=== PATIENT | male | born 1940 | race Two or more races ===

== ENCOUNTER 2023-11-03 00:54 | Inpatient (IN) | payer BC ==
[2023-11-03] VITALS (7 sets, daily range): BP systolic 116–138; BP diastolic 37–45; PULSE 57–70; RESP 16–20; TEMP 98.4–98.8; O2SAT 94–98
[~2023-11-03] VITALS: Ht 180.3 cm; Wt 99.8 kg
[2023-11-03] MEDS ORDERED: SODIUM CHLORIDE 0.9% 1,000 ML IV SCH ×2 (04:15→16:00)
[2023-11-03] MEDS ORDERED: NITROGLYCERIN 0.4 MG SL TAB SL PRN (04:15)
[2023-11-03] MEDS ORDERED: DOCUSATE SOD 100 MG CAP PO PRN (04:15)
[2023-11-03] MEDS ORDERED: ONDANSETRON HCL 4 MG/2 ML VIAL IV PRN (04:15)
[2023-11-03] MEDS ORDERED: MORPHINE SULFATE INJ 2 MG/ml SYRG IV PRN (04:15)
[2023-11-03] MEDS ORDERED: HYDROcodone-ACET 5/325MG TAB PO PRN (04:15)
[2023-11-03] MEDS ORDERED: ACETAMINOPHEN 325 MG TAB PO PRN (04:15)
[2023-11-03] MEDS ORDERED: SODI650T PO (04:22)
[2023-11-03] MEDS ORDERED: SIMV20TA20 PO (04:22)
[2023-11-03] MEDS ORDERED: ALLO300T2 PO (04:22)
[2023-11-03] MEDS ORDERED: AMIO200T13 PO (04:22)
[2023-11-03] MEDS ORDERED: FURO40TA4 PO (04:22)
[2023-11-03] MEDS ORDERED: BENA-27 PO (04:22)
[2023-11-03 05:58] LABS: Basophils # (auto) 0.1 10 ^3/uL (0-0.2); Basophils % (auto) 0.4 % (0.0-2.0); Eosinophils # (auto) 0 10 ^3/uL (0-0.8); Hematocrit 36.9 % (41.0-53.0); Hemoglobin 11.8 g/dL (13.5-17.5); Lymphocytes # (auto) 1.2 10 ^3/uL (0.4-5.4); Mean Corpuscular Hemoglobin 29.7 pg (28.0-32.0); Mean Corpuscular Hgb Conc. 32.1 g/dL (32.0-36.0); Mean Corpuscular Volume 92.5 fL (80.0-100.0); Monocytes # (auto) 1.6 10 ^3/uL (0-1.3); Monocytes % (auto) 8.1 % (0.0-12.0); Neutrophils # (auto) 16.9 10 ^3/uL (1.6-8.6); Neutrophils % (auto) 85.5 % (37.0-80.0); Red Blood Cells 3.99 10^6/uL (4.5-5.90); White Blood Cell 19.8 10^3/uL (4.4-10.8)
[2023-11-03 06:10] LABS: Calcium 8.4 mg/dL (8.7-10.4); Chloride 105 mmol/L (98-107); Potassium 4.1 mmol/L (3.5-5.1); Sodium 137 mmol/L (136-145)
[2023-11-03 06:11] LABS: Anion Gap 12 (5-15); Carbon Dioxide 20 mmol/L (20-30)
[2023-11-03 06:16] LABS: BUN/Creatinine Ratio 19.9 (10.0-20.0); Blood Urea Nitrogen 47 mg/dL (9-23); Glucose 122 mg/dL (74-106)
[2023-11-03] MEDS: PIPERACILLIN-TAZOB 3.375GM 100 ML IV SCH ×2 (08:56→21:10)
[2023-11-03] MEDS ORDERED: ATORVASTATIN 20 MG TAB PO SCH (22:00)
[2023-11-04] VITALS (8 sets, daily range): BP systolic 113–178; BP diastolic 41–71; PULSE 63–69; RESP 16–20; TEMP 98.1–98.8; O2SAT 95–98
[2023-11-04] MEDS: hydrALAZINE HCL 20 MG/ML VL IV PRN ×2 (04:56→16:41)
[2023-11-04 05:10] LABS: Basophils # (auto) 0 10 ^3/uL (0-0.2); Basophils % (auto) 0.3 % (0.0-2.0); Eosinophils # (auto) 0.1 10 ^3/uL (0-0.8); Eosinophils % (auto) 0.5 % (0.0-7.0); Hematocrit 35.1 % (41.0-53.0); Hemoglobin 11.5 g/dL (13.5-17.5); Lymphocytes # (auto) 1.4 10 ^3/uL (0.4-5.4); Lymphocytes % (auto) 9.1 % (10.0-50.0); Mean Corpuscular Hgb Conc. 32.6 g/dL (32.0-36.0); Monocytes # (auto) 1.4 10 ^3/uL (0-1.3); Monocytes % (auto) 8.8 % (0.0-12.0); Neutrophils # (auto) 12.9 10 ^3/uL (1.6-8.6); Neutrophils % (auto) 81.3 % (37.0-80.0); Red Blood Cells 3.82 10^6/uL (4.5-5.90); Red Cell Distribution Width 16.8 % (11.8-14.3); White Blood Cell 15.8 10^3/uL (4.4-10.8)
[2023-11-04 05:15] LABS: Anion Gap 11 (5-15); Carbon Dioxide 20 mmol/L (20-30); Chloride 105 mmol/L (98-107); Potassium 4.2 mmol/L (3.5-5.1); Sodium 136 mmol/L (136-145)
[2023-11-04 05:16] LABS: Calcium 8.6 mg/dL (8.7-10.4)
[2023-11-04 05:21] LABS: BUN/Creatinine Ratio 23.2 (10.0-20.0); Blood Urea Nitrogen 46 mg/dL (9-23); Glucose 110 mg/dL (74-106)
[2023-11-04] MEDS ORDERED: ASPirin-EC 81 mg tab PO SCH (10:00)
[2023-11-04] MEDS ORDERED: ASPI-543 PO (10:08)
[2023-11-04] MEDS: PIPERACILLIN-TAZOB 3.375GM 100 ML IV SCH ×2 (10:17→21:08)
[2023-11-04] MEDS: ENOXAPARIN SOD 30 MG/0.3 ML SYRINGE SC SCH (10:17)
[2023-11-04] MEDS ORDERED: LACTULOSE 20Gm/30ML SOLN PO PRN (12:45)
[2023-11-04] MEDS: AMIODARONE HCL 200 MG TAB PO SCH (13:03)
[2023-11-04 20:57] LABS: Urine Bacteria NONE SEEN /hpf (None Seen); Urine Blood 2+ /uL (Negative); Urine Clarity Clear (Clear); Urine Color Yellow (Yellow); Urine Protein, UAD 1+ (Negative); Urine Specific Gravity 1.013 (1.001-1.035); Urine WBC 20 /hpf (0 - 3)
[2023-11-04 21:01] LABS: Creatinine, Urine 72.02 mg/dL (30.0-125.0)
[2023-11-04] MEDS: ATORVASTATIN 20 MG TAB PO SCH (21:09)
[2023-11-05] VITALS (7 sets, daily range): BP systolic 130–145; BP diastolic 42–73; PULSE 60–68; RESP 17–20; TEMP 97.5–98.6; O2SAT 95–97
[2023-11-05 06:30] LABS: Basophils # (auto) 0.1 10 ^3/uL (0-0.2); Basophils % (auto) 0.6 % (0.0-2.0); Eosinophils # (auto) 0.1 10 ^3/uL (0-0.8); Eosinophils % (auto) 1.5 % (0.0-7.0); Hematocrit 34.9 % (41.0-53.0); Hemoglobin 11.5 g/dL (13.5-17.5); Lymphocytes # (auto) 1.3 10 ^3/uL (0.4-5.4); Lymphocytes % (auto) 13.2 % (10.0-50.0); Mean Corpuscular Hemoglobin 30.3 pg (28.0-32.0); Mean Corpuscular Hgb Conc. 32.9 g/dL (32.0-36.0); Monocytes # (auto) 1.2 10 ^3/uL (0-1.3); Monocytes % (auto) 12.5 % (0.0-12.0); Neutrophils # (auto) 6.8 10 ^3/uL (1.6-8.6); Neutrophils % (auto) 72.2 % (37.0-80.0); Nucleated Red Blood Cells % 0.1 %; Red Blood Cells 3.79 10^6/uL (4.5-5.90); Red Cell Distribution Width 16.6 % (11.8-14.3); White Blood Cell 9.5 10^3/uL (4.4-10.8)
[2023-11-05 06:43] LABS: Calcium 8.7 mg/dL (8.7-10.4); Chloride 107 mmol/L (98-107); Potassium 4.1 mmol/L (3.5-5.1); Sodium 138 mmol/L (136-145)
[2023-11-05 06:44] LABS: Anion Gap 12 (5-15); Carbon Dioxide 19 mmol/L (20-30)
[2023-11-05 06:49] LABS: BUN/Creatinine Ratio 19.4 (10.0-20.0); Blood Urea Nitrogen 38 mg/dL (9-23); Glucose 102 mg/dL (74-106)
[2023-11-05] MEDS: PIPERACILLIN-TAZOB 3.375GM 100 ML IV SCH ×2 (09:47→22:27)
[2023-11-05] MEDS: AMIODARONE HCL 200 MG TAB PO SCH (09:48)
[2023-11-05] MEDS: ALLOPURINOL 300 MG TAB PO SCH (09:48)
[2023-11-05] MEDS: ENOXAPARIN SOD 30 MG/0.3 ML SYRINGE SC SCH (09:48)
[2023-11-05] MEDS: ASPirin-EC 81 mg tab PO SCH (09:48)
[2023-11-05] MEDS: ATORVASTATIN 20 MG TAB PO SCH (22:26)
[2023-11-06 05:00] VITALS: BP 131/39; PULSE 60; RESP 18; TEMP 98.6; O2SAT 96
[2023-11-06 07:58] VITALS: PULSE 61
[2023-11-06 08:00] VITALS: PULSE 60
[2023-11-06 08:00] LABS: Basophils # (auto) 0.1 10 ^3/uL (0-0.2); Basophils % (auto) 1.1 % (0.0-2.0); Eosinophils # (auto) 0.2 10 ^3/uL (0-0.8); Eosinophils % (auto) 2.1 % (0.0-7.0); Hematocrit 33.3 % (41.0-53.0); Hemoglobin 11.1 g/dL (13.5-17.5); Lymphocytes # (auto) 1.2 10 ^3/uL (0.4-5.4); Lymphocytes % (auto) 16.3 % (10.0-50.0); Mean Corpuscular Hemoglobin 30.3 pg (28.0-32.0); Mean Corpuscular Hgb Conc. 33.2 g/dL (32.0-36.0); Mean Corpuscular Volume 91.3 fL (80.0-100.0); Monocytes % (auto) 13.8 % (0.0-12.0); Neutrophils # (auto) 4.7 10 ^3/uL (1.6-8.6); Neutrophils % (auto) 66.7 % (37.0-80.0); Red Blood Cells 3.64 10^6/uL (4.5-5.90); Red Cell Distribution Width 16.5 % (11.8-14.3)
[2023-11-06 08:16] LABS: Chloride 109 mmol/L (98-107); Potassium 4.3 mmol/L (3.5-5.1); Sodium 140 mmol/L (136-145)
[2023-11-06 08:17] LABS: Anion Gap 10 (5-15); Carbon Dioxide 21 mmol/L (20-30)
[2023-11-06 08:22] LABS: BUN/Creatinine Ratio 19.1 (10.0-20.0); Blood Urea Nitrogen 41 mg/dL (9-23); Glucose 97 mg/dL (74-106)
[2023-11-06 09:00] VITALS: BP 164/44; PULSE 60; RESP 18; TEMP 97.2; O2SAT 94
[2023-11-06] MEDS: hydrALAZINE HCL 20 MG/ML VL IV PRN (09:06)
[2023-11-06] MEDS: ALLOPURINOL 300 MG TAB PO SCH (09:09)
[2023-11-06] MEDS: ASPirin-EC 81 mg tab PO SCH (09:09)
[2023-11-06] MEDS: ENOXAPARIN SOD 30 MG/0.3 ML SYRINGE SC SCH (09:10)
[2023-11-06] MEDS: AMIODARONE HCL 200 MG TAB PO SCH (09:10)
[2023-11-06] MEDS: PIPERACILLIN-TAZOB 3.375GM 100 ML IV SCH (09:32)
[2023-11-06 13:00] VITALS: BP 140/46; PULSE 60; RESP 18; TEMP 97.6; O2SAT 96
[2023-11-06] MEDS ORDERED: AMIO200T13 PO (14:53)
[2023-11-06] MEDS ORDERED: AMOX500T86 PO (14:53)
[2023-11-06 17:00] VITALS: BP 151/48; PULSE 61; RESP 18; TEMP 97.9; O2SAT 98
== END 2023-11-06 18:45 | disposition home health service (06) | DRG 683 ==
LOC: TELE-WESTW 02:25
PROVIDERS: ADMIT Hospitalist; ATTEND Hospitalist
DX: N17.9 Acute kidney failure, unspecified (principal); E87.20 Acidosis, unspecified; L03.115 Cellulitis of right lower limb; N39.0 Urinary tract infection, site not specified; E66.9 Obesity, unspecified; H91.90 Unspecified hearing loss, unspecified ear; S09.90XA Unspecified injury of head, initial encounter; I13.10 Hypertensive heart and chronic kidney disease without heart failure, with stage 1 through stage 4 chronic kidney disease, or unspecified chronic kidney disease; M10.9 Gout, unspecified; N18.32 Chronic kidney disease, stage 3b; I48.91 Unspecified atrial fibrillation; Z68.30 Body mass index [BMI] 30.0-30.9, adult; Z80.9 Family history of malignant neoplasm, unspecified; Z95.2 Presence of prosthetic heart valve; Z95.0 Presence of cardiac pacemaker
CPT/HCPCS: 36415; 73562; 73610; 76775; 80048; 81001; 82570; 84156; 84300; 84484; 85025; 87040; 87081; 87086; 93306; 97110; 97116; 97163; 97530; G0378; J2543

== ENCOUNTER 2023-11-15 11:50 | Emergency (ER) | payer BC ==
[~2023-11-15] VITALS: Ht 180.3 cm; Wt 100.0 kg
[~2023-11-15 11:50] MED LIST: ALLO300T2 PO; AMIO200T13 PO; AMOX500T86 PO; ASPI-543 PO; BENA-27 PO; SIMV20TA20 PO; SODI650T PO
[2023-11-15 13:30] VITALS: BP 178/84; PULSE 107; RESP 16; O2SAT 98
[2023-11-15 13:40] VITALS: TEMP 98.4
[2023-11-15] MEDS ORDERED: ACET-1080 PO (13:40)
[2023-11-15] MEDS ORDERED: ACETAMINOPHEN 500 MG TAB PO ONE (13:45)
== END 2023-11-15 13:43 | disposition home or self-care (01) ==
LOC: EDBD 11:50 → EDUNIT# 11:50 → ER 11:50
DX: S82.832A Other fracture of upper and lower end of left fibula, initial encounter for closed fracture (principal); I10 Essential (primary) hypertension; W01.0XXA Fall on same level from slipping, tripping and stumbling without subsequent striking against object, initial encounter; Y93.01 Activity, walking, marching and hiking; Y92.89 Other specified places as the place of occurrence of the external cause; Y99.8 Other external cause status
CPT/HCPCS: 29515; 73610

== ENCOUNTER 2023-12-04 10:45 | Inpatient (IN) | payer BC ==
[~2023-12-04] VITALS: Ht 180.3 cm; Wt 100.0 kg
[~2023-12-04 10:45] MED LIST changes: +ACET-1080 PO
[2023-12-04] MEDS: FLEET ENEMA(ADULT) 135 ML PR ONE (11:30)
[2023-12-04 11:38] LABS: Basophils # (auto) 0.1 10 ^3/uL (0-0.2); Basophils % (auto) 0.6 % (0.0-2.0); Eosinophils # (auto) 0.1 10 ^3/uL (0-0.8); Eosinophils % (auto) 0.8 % (0.0-7.0); Hematocrit 41.4 % (41.0-53.0); Hemoglobin 13.6 g/dL (13.5-17.5); Lymphocytes # (auto) 1.7 10 ^3/uL (0.4-5.4); Lymphocytes % (auto) 17.8 % (10.0-50.0); Mean Corpuscular Hemoglobin 30.4 pg (28.0-32.0); Mean Corpuscular Hgb Conc. 32.9 g/dL (32.0-36.0); Mean Corpuscular Volume 92.4 fL (80.0-100.0); Monocytes % (auto) 10.7 % (0.0-12.0); Neutrophils # (auto) 6.8 10 ^3/uL (1.6-8.6); Neutrophils % (auto) 70.1 % (37.0-80.0); Red Blood Cells 4.48 10^6/uL (4.5-5.90); Red Cell Distribution Width 17.6 % (11.8-14.3); White Blood Cell 9.7 10^3/uL (4.4-10.8)
[2023-12-04 11:48] LABS: Alanine Aminotransferase 13 U/L (7-40); Albumin 4.5 g/dL (3.2-4.8); Alkaline Phosphatase 164 U/L (46-116); Anion Gap 9 (5-15); Aspartate Aminotransferase 16 U/L (13-40); Blood Urea Nitrogen 42 mg/dL (9-23); Calcium 9.5 mg/dL (8.7-10.4); Carbon Dioxide 23 mmol/L (20-30); Chloride 104 mmol/L (98-107); Glucose 128 mg/dL (74-106); Lipase 40 U/L (12-53); Potassium 4.3 mmol/L (3.5-5.1); Sodium 136 mmol/L (136-145)
[2023-12-04 11:49] LABS: Bilirubin, Total 0.6 mg/dL (0.2-1.0); Total Protein 6.7 g/dL (5.7-8.2)
[2023-12-04 12:12] LABS: Urine Bacteria NONE SEEN /hpf (None Seen); Urine Blood TRACE /uL (Negative); Urine Clarity Clear (Clear); Urine Color Colorless (Yellow); Urine Hyaline Cast FEW /lpf (0 - 2); Urine Protein, UAD TRACE (Negative); Urine Specific Gravity 1.009 (1.001-1.035); Urine Urobilinogen Normal (Negative); Urine WBC 1 /hpf (0 - 3); Urine pH 5.5 (5.0-8.0)
[2023-12-04] MEDS ORDERED: MORPHINE SULFATE INJ 2 MG/ml SYRG IV PRN ×2 (12:45)
[2023-12-04] MEDS ORDERED: PROMETHAZINE HCL 25 MG/ML 1ML IV PRN (12:45)
[2023-12-04] MEDS ORDERED: NITROGLYCERIN 0.4 MG SL TAB SL PRN (12:45)
[2023-12-04] MEDS ORDERED: MORPHINE SULFATE 4 MG/ML SYR/VIAL IV PRN (12:45)
[2023-12-04] MEDS ORDERED: hydrALAZINE HCL 20 MG/ML VL IV PRN (13:00)
[2023-12-04] MEDS: FLEET MINERAL OIL ENEMA 133 ML PR ONE (14:12)
[2023-12-04] MEDS: SOD CHL 0.45% WITH 20MEQ KCL 1,000 ML IV SCH (14:39)
[2023-12-04] MEDS: SODIUM CHLORIDE 0.9% 1,000 ML IV SCH (15:51)
[2023-12-04 17:46] VITALS: PULSE 65; RESP 18; O2SAT 97
[2023-12-04] MEDS: LACTULOSE 20Gm/30ML SOLN PO SCH (18:25)
[2023-12-04] MEDS ORDERED: FURO40TA4 PO (18:58)
[2023-12-04] MEDS ORDERED: LUTE6TAB PO (18:58)
[2023-12-04 20:00] VITALS: BP 168/46; PULSE 62; RESP 17; TEMP 97.5; O2SAT 96
[2023-12-04 22:00] VITALS: BP 168/43; PULSE 62; RESP 20; TEMP 97.6; O2SAT 96
[2023-12-04] MEDS: ATORVASTATIN 20 MG TAB PO SCH (22:36)
[2023-12-04] MEDS: cloNIDine HCL 0.1 MG TAB PO SCH (22:36)
[2023-12-04] MEDS: SENNA 8.6 MG TAB PO SCH (22:36)
[2023-12-05 05:00] VITALS: BP 95/35; PULSE 60; RESP 20; TEMP 98.8; O2SAT 95
[2023-12-05 06:33] LABS: Chloride 109 mmol/L (98-107); Potassium 4.3 mmol/L (3.5-5.1); Sodium 139 mmol/L (136-145)
[2023-12-05 06:34] LABS: Anion Gap 7 (5-15); Calcium 9.1 mg/dL (8.5-10.1); Carbon Dioxide 23 mmol/L (20-30)
[2023-12-05 06:39] LABS: BUN/Creatinine Ratio 17.9 (10.0-20.0); Glucose 105 mg/dL (74-106)
[2023-12-05 06:40] LABS: Basophils # (auto) 0 10 ^3/uL (0-0.2); Basophils % (auto) 0.7 % (0.0-2.0); Eosinophils # (auto) 0.2 10 ^3/uL (0-0.8); Eosinophils % (auto) 2.5 % (0.0-7.0); Hematocrit 36.6 % (41.0-53.0); Lymphocytes # (auto) 1.6 10 ^3/uL (0.4-5.4); Lymphocytes % (auto) 22.8 % (10.0-50.0); Mean Corpuscular Hemoglobin 29.8 pg (28.0-32.0); Mean Corpuscular Hgb Conc. 32.7 g/dL (32.0-36.0); Mean Corpuscular Volume 91.2 fL (80.0-100.0); Monocytes # (auto) 0.8 10 ^3/uL (0-1.3); Monocytes % (auto) 10.7 % (0.0-12.0); Neutrophils # (auto) 4.5 10 ^3/uL (1.6-8.6); Neutrophils % (auto) 63.3 % (37.0-80.0); Red Blood Cells 4.01 10^6/uL (4.5-5.90); Red Cell Distribution Width 17.2 % (11.8-14.3); White Blood Cell 7.2 10^3/uL (4.4-10.8)
[2023-12-05 06:54] LABS: Blood Urea Nitrogen 31 mg/dL (9-23)
[2023-12-05 09:00] VITALS: BP 105/60; PULSE 60; RESP 18; TEMP 98.1; O2SAT 97
[2023-12-05] MEDS: AMIODARONE HCL 200 MG TAB PO SCH (09:48)
[2023-12-05] MEDS: ALLOPURINOL 100 MG TAB PO SCH (09:51)
[2023-12-05 13:00] VITALS: BP 128/77; PULSE 60; RESP 18; TEMP 98.7; O2SAT 94
[2023-12-05] MEDS ORDERED: SENN-58 PO (14:09)
[2023-12-05] MEDS ORDERED: LACT10SO3 PO (14:09)
[2023-12-05 16:57] VITALS: BP 154/53; PULSE 60; RESP 16; TEMP 98.4; O2SAT 95
== END 2023-12-05 17:18 | disposition home or self-care (01) | DRG 392 ==
LOC: ER 10:45 → OVERFLOW 12:43 → WEST WING 18:06
PROVIDERS: ADMIT Hospitalist; ATTEND Hospitalist
DX: K59.00 Constipation, unspecified (principal); K40.20 Bilateral inguinal hernia, without obstruction or gangrene, not specified as recurrent; N28.89 Other specified disorders of kidney and ureter; M10.9 Gout, unspecified; E78.5 Hyperlipidemia, unspecified; H35.30 Unspecified macular degeneration; N18.9 Chronic kidney disease, unspecified; I12.9 Hypertensive chronic kidney disease with stage 1 through stage 4 chronic kidney disease, or unspecified chronic kidney disease; Z79.82 Long term (current) use of aspirin; Z79.899 Other long term (current) drug therapy; Z82.49 Family history of ischemic heart disease and other diseases of the circulatory system
CPT/HCPCS: 36415; 74176; 80048; 80053; 81001; 83690; 84439; 84443; 84484; 85025; 87081; 93971; 96365; 97163; G0378

== ENCOUNTER 2024-02-18 16:22 | Inpatient (IN) | payer BC ==
[~2024-02-18] VITALS: Ht 180.3 cm; Wt 89.2 kg
[~2024-02-18 16:22] MED LIST changes: -ACET-1080 PO; +FURO40TA4 PO; +LACT10SO3 PO; +LUTE6TAB PO
[2024-02-18] MEDS ORDERED: ACETAMINOPHEN 500 MG TAB PO ONE (18:30)
[2024-02-18 21:03] LABS: Basophils # (auto) 0.1 10 ^3/uL (0-0.2); Basophils % (auto) 0.9 % (0.0-2.0); Eosinophils # (auto) 0.1 10 ^3/uL (0-0.8); Hematocrit 43.2 % (41.0-53.0); Hemoglobin 14.1 g/dL (13.5-17.5); Lymphocytes # (auto) 1.9 10 ^3/uL (0.4-5.4); Lymphocytes % (auto) 14.5 % (10.0-50.0); Mean Corpuscular Hemoglobin 29.5 pg (28.0-32.0); Mean Corpuscular Hgb Conc. 32.7 g/dL (32.0-36.0); Mean Corpuscular Volume 90.2 fL (80.0-100.0); Monocytes # (auto) 1.1 10 ^3/uL (0-1.3); Monocytes % (auto) 8.7 % (0.0-12.0); Neutrophils # (auto) 9.6 10 ^3/uL (1.6-8.6); Neutrophils % (auto) 74.9 % (37.0-80.0); Red Blood Cells 4.78 10^6/uL (4.5-5.90); Red Cell Distribution Width 16.7 % (11.8-14.3); White Blood Cell 12.8 10^3/uL (4.4-10.8)
[2024-02-18 21:20] LABS: Alanine Aminotransferase 13 U/L (7-40); Albumin 4.7 g/dL (3.2-4.8); Alkaline Phosphatase 164 U/L (46-116); Anion Gap 11 (5-15); Aspartate Aminotransferase 17 U/L (13-40); BUN/Creatinine Ratio 20.6 (10.0-20.0); Bilirubin, Total 0.5 mg/dL (0.2-1.0); Blood Urea Nitrogen 39 mg/dL (9-23); Calcium 9.8 mg/dL (8.5-10.1); Carbon Dioxide 20 mmol/L (20-30); Chloride 99 mmol/L (98-107); Glucose 121 mg/dL (74-106); Potassium 4.5 mmol/L (3.5-5.1); Sodium 130 mmol/L (136-145); Total Protein 7.1 g/dL (5.7-8.2)
[2024-02-19] MEDS ORDERED: MORPHINE SULFATE 4 MG/ML SYR/VIAL IV PRN (00:45)
[2024-02-19] MEDS ORDERED: ONDANSETRON HCL 4 MG/2 ML VIAL IV PRN (00:45)
[2024-02-19] MEDS: HYDROcodone-ACET 10/325MG TAB PO ONE (00:46)
[2024-02-19 01:17] LABS: INR 1.03 (0.9-1.15); Prothrombin Time 10.8 sec (9.3-11.8)
[2024-02-19 01:31] LABS: Basophils # (auto) 0.1 10 ^3/uL (0-0.2); Basophils % (auto) 0.8 % (0.0-2.0); Eosinophils # (auto) 0.2 10 ^3/uL (0-0.8); Eosinophils % (auto) 1.6 % (0.0-7.0); Hematocrit 44.1 % (41.0-53.0); Hemoglobin 14.4 g/dL (13.5-17.5); Lymphocytes # (auto) 1.9 10 ^3/uL (0.4-5.4); Lymphocytes % (auto) 15.2 % (10.0-50.0); Mean Corpuscular Hemoglobin 29.8 pg (28.0-32.0); Mean Corpuscular Hgb Conc. 32.7 g/dL (32.0-36.0); Mean Corpuscular Volume 91.2 fL (80.0-100.0); Monocytes # (auto) 1.1 10 ^3/uL (0-1.3); Monocytes % (auto) 8.3 % (0.0-12.0); Neutrophils # (auto) 9.5 10 ^3/uL (1.6-8.6); Neutrophils % (auto) 74.1 % (37.0-80.0); Red Blood Cells 4.84 10^6/uL (4.5-5.90); Red Cell Distribution Width 16.9 % (11.8-14.3); White Blood Cell 12.8 10^3/uL (4.4-10.8)
[2024-02-19 01:41] LABS: Anion Gap 7 (5-15); Carbon Dioxide 22 mmol/L (20-30); Chloride 99 mmol/L (98-107); Potassium 4.4 mmol/L (3.5-5.1); Sodium 128 mmol/L (136-145)
[2024-02-19 01:47] LABS: BUN/Creatinine Ratio 18.9 (10.0-20.0); Blood Urea Nitrogen 36 mg/dL (9-23); Glucose 130 mg/dL (74-106)
[2024-02-19 07:20] VITALS: PULSE 62; RESP 12; O2SAT 97
[2024-02-19] MEDS: cefTRIAXone 1GM/50ML D5W 50 ML IV ONE ×2 (08:14→08:19)
[2024-02-19] MEDS: PANTOPRAZOLE 40 MG/10 ML VIAL INJ IV SCH (10:50)
[2024-02-19] MEDS: D5W/ SOD CHL 0.9%/KCL 20MEQ 1,000 ML IV SCH (10:51)
[2024-02-19 17:00] VITALS: BP 152/54; PULSE 62; RESP 17; TEMP 98.3; O2SAT 97
[2024-02-19 19:43] VITALS: PULSE 62; RESP 17; O2SAT 97
[2024-02-19 20:00] VITALS: PULSE 60; RESP 16
[2024-02-19 21:00] VITALS: BP 158/44; PULSE 58; RESP 17; TEMP 98.6; O2SAT 98
[2024-02-20] VITALS (8 sets, daily range): BP systolic 126–162; BP diastolic 49–76; PULSE 53–73; RESP 14–18; TEMP 97.4–98.8; O2SAT 96–98
[2024-02-20 07:45] LABS: Albumin 3.6 g/dL (3.2-4.8); Alkaline Phosphatase 129 U/L (46-116); Anion Gap 7 (5-15); Aspartate Aminotransferase 14 U/L (13-40); BUN/Creatinine Ratio 20.4 (10.0-20.0); Bilirubin, Total 0.6 mg/dL (0.2-1.0); Blood Urea Nitrogen 28 mg/dL (9-23); Carbon Dioxide 23 mmol/L (20-30); Chloride 107 mmol/L (98-107); Glucose 99 mg/dL (74-106); Potassium 4.6 mmol/L (3.5-5.1); Sodium 137 mmol/L (136-145); Total Protein 5.8 g/dL (5.7-8.2)
[2024-02-20 07:46] LABS: Alanine Aminotransferase < 9 U/L (7-40)
[2024-02-20] MEDS: ceFAZolin 2 GM/D5W50ml 50 ML IV ONE (13:37)
[2024-02-20] MEDS ORDERED: MIDAZOLAM HCL 2MG/2ML 2ml VIAL (1mg/ml) ONE (13:52)
[2024-02-20] MEDS ORDERED: fentaNYL CITRATE 100 MCG/2 ML VL ONE (13:52)
[2024-02-20] MEDS ORDERED: PROPOFOL 10 MG/ML 20 ML IV ONE (13:54)
[2024-02-20] MEDS ORDERED: METH-928 PO (14:16)
[2024-02-20] MEDS ORDERED: ePHEDrine SULFATE 50 MG/ML AMP ONE (14:19)
[2024-02-20] MEDS ORDERED: GLYCOPYRROLATE 0.2 MG/ML 1ML VIAL ONE (14:50)
[2024-02-20] MEDS: ONDANSETRON HCL 4 MG/2 ML VIAL IV ONE (15:30)
[2024-02-20] MEDS: D5W/SOD CHL 0.45%/KCL 20MEQ 1,000 ML IV SCH (17:20)
[2024-02-20] MEDS: HYDROmorphone HCL 2 MG/ML VL/or syr IV PRN (17:40)
[2024-02-20] MEDS: ceFAZolin 1GM/50ML 50 ML IV SCH (21:48)
[2024-02-21] VITALS (42 sets, daily range): BP systolic 83–167; BP diastolic 28–69; PULSE 60–103; RESP 18–34; TEMP 97.9–102.6; O2SAT 93–100
[2024-02-21] MEDS: hydrALAZINE HCL 20 MG/ML VL IV PRN (13:13)
[2024-02-21] MEDS: LORazepam 2MG/ML-1ML VIAL IV ONE (13:14)
[2024-02-21] MEDS: ETOMIDATE (2MG/ML) 20ML VIAL IV ONE ×2 (13:46→15:15)
[2024-02-21] MEDS: SUCCINYLCHOLINE CHLORIDE 20 MG/ML 10ML VIAL IV ONE (13:47)
[2024-02-21] MEDS: PROPOFOL 100 ML IV ONE (13:55)
[2024-02-21] MEDS: MIDAZOLAM DRIP 50 mg/50mL 50 ML IV ONE (13:56)
[2024-02-21 14:10] LABS: Base Excess -12.9 mmol/L (-2.0-2.0)
[2024-02-21] MEDS: IOHEXOL 350 MG/ML 100ML IJ ONE (14:16)
[2024-02-21] MEDS: DOCUSATE SOD 100 MG CAP PO ONE (14:45)
[2024-02-21] MEDS: fentaNYL Drip 2500mCg/250mlNS 250 ML IV ONE (14:47)
[2024-02-21] MEDS: NOREPINEPHRINE 8 MG/250ML KIT 250 ML IV ONE (15:01)
[2024-02-21] MEDS: PROPOFOL 100 ML IV SCH (15:15)
[2024-02-21] MEDS: fentaNYL Drip 2500mCg/250mlNS 250 ML IV SCH (16:00)
[2024-02-21] MEDS: SOD CHL 0.45% 1,000 ML IV SCH (16:00)
[2024-02-21] MEDS: NOREPINEPHRINE 8 MG/250ML KIT 250 ML IV SCH (16:15)
[2024-02-21 16:27] LABS: Base Excess -7.2 mmol/L (-2.0-2.0)
[2024-02-21 16:40] LABS: Basophils # (auto) 0.1 10 ^3/uL (0-0.2); Basophils % (auto) 0.6 % (0.0-2.0); Eosinophils # (auto) 0 10 ^3/uL (0-0.8); Eosinophils % (auto) 0.1 % (0.0-7.0); Hematocrit 37.6 % (41.0-53.0); Hemoglobin 12.1 g/dL (13.5-17.5); Lymphocytes # (auto) 0.8 10 ^3/uL (0.4-5.4); Lymphocytes % (auto) 4.1 % (10.0-50.0); Mean Corpuscular Hemoglobin 29.3 pg (28.0-32.0); Mean Corpuscular Volume 91.5 fL (80.0-100.0); Monocytes # (auto) 1.9 10 ^3/uL (0-1.3); Monocytes % (auto) 10.1 % (0.0-12.0); Neutrophils # (auto) 15.9 10 ^3/uL (1.6-8.6); Neutrophils % (auto) 85.1 % (37.0-80.0); Red Blood Cells 4.11 10^6/uL (4.5-5.90); Red Cell Distribution Width 16.9 % (11.8-14.3); White Blood Cell 18.7 10^3/uL (4.4-10.8)
[2024-02-21 16:48] LABS: Chloride 104 mmol/L (98-107)
[2024-02-21 16:49] LABS: Anion Gap 4 (5-15); Carbon Dioxide 21 mmol/L (20-30)
[2024-02-21 16:50] LABS: Calcium 9.1 mg/dL (8.7-10.4)
[2024-02-21 16:55] LABS: BUN/Creatinine Ratio 15.9 (10.0-20.0); Blood Urea Nitrogen 25 mg/dL (9-23); Magnesium 1.9 mg/dL (1.6-2.6)
[2024-02-21 16:57] LABS: Phosphorus 3.2 mg/dL (2.4-5.1)
[2024-02-21 17:13] LABS: Glucose 239 mg/dL (74-106); Sodium 129 mmol/L (136-145)
[2024-02-21 17:15] LABS: Potassium 5.7 mmol/L (3.5-5.1)
[2024-02-21 17:39] LABS: INR 1.13 (0.9-1.15); Prothrombin Time 11.8 sec (9.3-11.8)
[2024-02-21] MEDS: MIDAZOLAM DRIP 50 mg/50mL 50 ML IV SCH (18:28)
[2024-02-21] MEDS: ALBUTEROL SULF 2.5 MG/0.5ML(0.5%) NEB SOLN NEB ONE (19:57)
[2024-02-21] MEDS: SODIUM BICARB 8.4% 50Meq/50ml SYR INJ IV ONE (20:03)
[2024-02-21] MEDS: DEXTROSE (50%) 50ML SYRG IV ONE (20:04)
[2024-02-21] MEDS: CALCIUM GLUC 1,000mg/50ml-NS 50 ML IV ONE (20:04)
[2024-02-21] MEDS: InsuLIN REG 1unit/0.01ml Soln (100units/ml) IV ONE (20:11)
[2024-02-21] MEDS: SODIUM BICARB 8.4% 50Meq/50ml SYR Vial IV ONE (20:27)
[2024-02-21] MEDS: SODIUM ZIRCONIUM CYCL 10 GM PAK PO ONE (20:57)
[2024-02-21] MEDS: SODIUM BICARB 50mEq/50ml Vial 50 ML in SOD CHL 0.45% 1,000 ML IV SCH (20:57)
[2024-02-22] VITALS (112 sets, daily range): BP systolic 74–142; BP diastolic 23–41; PULSE 54–100; RESP 13–40; TEMP 95.7–101.9; O2SAT 75–100
[2024-02-22] MEDS: ACETAMINOPHEN 650 MG RECT SUPP PR PRN (00:19)
[2024-02-22 04:21] LABS: Hemoglobin 13.3 g/dL (13.5-17.5); Mean Corpuscular Hemoglobin 29.7 pg (28.0-32.0)
[2024-02-22 04:23] LABS: Hematocrit 41.9 % (41.0-53.0); Mean Corpuscular Hgb Conc. 31.8 g/dL (32.0-36.0); Mean Corpuscular Volume 93.7 fL (80.0-100.0); Red Blood Cells 4.47 10^6/uL (4.5-5.90)
[2024-02-22 04:32] LABS: White Blood Cell 32.9 10^3/uL (4.4-10.8)
[2024-02-22 04:34] LABS: Basophils % (manual) 0 (0.0-2.0); Blast Cells 0; Eosinophils % (manual) 0 (0-7); Metamyelocytes % 0; Myelocytes % 0; Promyelocytes % 0; Reactive Lymphocytes 0
[2024-02-22 04:43] LABS: Alanine Aminotransferase 13 U/L (7-40); Albumin 3.8 g/dL (3.2-4.8); Alkaline Phosphatase 122 U/L (46-116); Anion Gap 11 (5-15); Aspartate Aminotransferase 20 U/L (13-40); BUN/Creatinine Ratio 10.4 (10.0-20.0); Bilirubin, Total 0.7 mg/dL (0.2-1.0); Blood Urea Nitrogen 21 mg/dL (9-23); Calcium 9.5 mg/dL (8.7-10.4); Carbon Dioxide 17 mmol/L (20-30); Chloride 105 mmol/L (98-107); Glucose 118 mg/dL (74-106); Potassium 5.1 mmol/L (3.5-5.1); Sodium 133 mmol/L (136-145); Total Protein 6.1 g/dL (5.7-8.2)
[2024-02-22 05:39] LABS: Urine Bacteria FEW /hpf (None Seen); Urine Blood 1+ /uL (Negative); Urine Budding Yeast FEW /hpf (None Seen); Urine Clarity Turbid (Clear); Urine Color Light-Orange (Yellow); Urine Protein, UAD 1+ (Negative); Urine Urobilinogen Normal (Negative); Urine WBC 403 /hpf (0 - 3); Urine WBC Clumps PRESENT /hpf (None Seen); Urine pH 5.5 (5.0-9.0)
[2024-02-22 05:41] LABS: Urine Specific Gravity > 1.050 (1.001-1.035)
[2024-02-22 05:54] LABS: Band Neutrophils % (manual) 6; Lymphocytes % (manual) 7 (10.0-50.0); Monocytes % (manual) 5 (0-12); Platelet Estimate Adequate
[2024-02-22 06:04] LABS: Protein, Urine 108.8 mg/dL (0.0-11.9)
[2024-02-22 06:07] LABS: Creatinine, Urine 150.69 mg/dL (30.0-125.0); Urine Protein/Creatinine Ratio 0.72
[2024-02-22] MEDS: PHENYLEPHRINE IV 250 ML IV SCH (06:15)
[2024-02-22] MEDS: HEPARIN SODIUM (PORCINE) 5000 UNITS/ML 1ML VIAL SC SCH (10:13)
[2024-02-22] MEDS: SODIUM BICARB 50mEq/50ml Vial 50 ML in SOD CHL 0.45% 1,000 ML IV SCH (11:15)
[2024-02-22] MEDS: DOPamine 1600MCG/ML D5W 250 ML IV SCH (11:27)
[2024-02-22] MEDS: NOREPINEPHRINE BITARTRATE 32 MG in SODIUM CHL 0.9% 218 ML IV SCH (15:47)
[2024-02-22] MEDS: LINEZOLID 600MG/300ML 300 ML IV SCH (16:12)
[2024-02-22] MEDS: FUROSEMIDE 40 MG/4 ML VIAL ONE (16:13)
[2024-02-22] MEDS: FUROSEMIDE 40 MG/4 ML VIAL IV ONE (16:13)
[2024-02-22] MEDS: PIPERACILLIN-TAZOB 3.375GM 100 ML IV SCH (16:23)
[2024-02-23] VITALS (112 sets, daily range): BP systolic 93–147; BP diastolic 27–39; PULSE 70–89; RESP 10–22; TEMP 97.3–99.5; O2SAT 95–100
[2024-02-23 03:57] LABS: Basophils # (auto) 0.1 10 ^3/uL (0-0.2); Basophils % (auto) 0.5 % (0.0-2.0); Eosinophils # (auto) 0.1 10 ^3/uL (0-0.8); Eosinophils % (auto) 0.6 % (0.0-7.0); Hematocrit 35.2 % (41.0-53.0); Hemoglobin 11.5 g/dL (13.5-17.5); Lymphocytes # (auto) 1.6 10 ^3/uL (0.4-5.4); Lymphocytes % (auto) 7.3 % (10.0-50.0); Mean Corpuscular Hemoglobin 29.9 pg (28.0-32.0); Mean Corpuscular Hgb Conc. 32.7 g/dL (32.0-36.0); Mean Corpuscular Volume 91.4 fL (80.0-100.0); Monocytes % (auto) 9.2 % (0.0-12.0); Neutrophils # (auto) 18.2 10 ^3/uL (1.6-8.6); Neutrophils % (auto) 82.4 % (37.0-80.0); Red Blood Cells 3.85 10^6/uL (4.5-5.90); White Blood Cell 22.2 10^3/uL (4.4-10.8)
[2024-02-23 04:17] LABS: Chloride 100 mmol/L (98-107)
[2024-02-23 04:18] LABS: Anion Gap 9 (5-15); Carbon Dioxide 19 mmol/L (20-30)
[2024-02-23 04:19] LABS: Calcium 9.3 mg/dL (8.7-10.4)
[2024-02-23 04:23] LABS: Glucose 162 mg/dL (74-106)
[2024-02-23 04:24] LABS: BUN/Creatinine Ratio 9.9 (10.0-20.0); Magnesium 1.9 mg/dL (1.6-2.6)
[2024-02-23 04:34] LABS: Blood Urea Nitrogen 37 mg/dL (9-23); Sodium 128 mmol/L (136-145)
[2024-02-23] MEDS: DEXTROSE (50%) 50ML SYRG IV ONE ×2 (05:59→13:45)
[2024-02-23] MEDS: CALCIUM GLUC 1,000mg/50ml-NS 50 ML IV ONE ×2 (05:59→13:45)
[2024-02-23] MEDS: SODIUM ZIRCONIUM CYCL 10 GM PAK PO ONE ×3 (05:59→22:22)
[2024-02-23] MEDS: InsuLIN REG 1unit/0.01ml Soln (100units/ml) IV ONE ×2 (06:00→12:30)
[2024-02-23 07:54] LABS: Base Excess -9.5 mmol/L (-2.0-2.0)
[2024-02-23 11:02] LABS: Chloride 99 mmol/L (98-107); Sodium 126 mmol/L (136-145)
[2024-02-23 11:03] LABS: Anion Gap 12 (5-15); Carbon Dioxide 15 mmol/L (20-30)
[2024-02-23 11:04] LABS: Calcium 9.2 mg/dL (8.5-10.1)
[2024-02-23 11:08] LABS: BUN/Creatinine Ratio 7.3 (10.0-20.0); Blood Urea Nitrogen 29 mg/dL (9-23); Glucose 137 mg/dL (74-106)
[2024-02-23 11:10] LABS: Potassium 6.3 mmol/L (3.5-5.1)
[2024-02-23] MEDS: SODIUM BICARB 50mEq/50ml Vial 75 ML in SOD CHL 0.45% 1,000 ML IV SCH (11:15)
[2024-02-23] MEDS: BUMETANIDE INJECTION 25 MG in GIVE UN-DILUTED 0 ML IV SCH (11:15)
[2024-02-23] MEDS ORDERED: ALBUMIN 25% 100 ML IV PRN (12:45)
[2024-02-23] MEDS: ALBUTEROL SULF 2.5 MG/0.5ML(0.5%) NEB SOLN NEB ONE (14:11)
[2024-02-23] MEDS: PIPERACILLIN-TAZOB 3.375GM 100 ML IV SCH (22:03)
[2024-02-24] VITALS (108 sets, daily range): BP systolic 99–153; BP diastolic 29–44; PULSE 65–82; RESP 12–22; TEMP 97.5–100.2; O2SAT 96–100
[2024-02-24 04:25] LABS: Basophils # (auto) 0.1 10 ^3/uL (0-0.2); Basophils % (auto) 0.7 % (0.0-2.0); Eosinophils # (auto) 0.2 10 ^3/uL (0-0.8); Eosinophils % (auto) 1.3 % (0.0-7.0); Hematocrit 31.2 % (41.0-53.0); Hemoglobin 10.1 g/dL (13.5-17.5); Lymphocytes # (auto) 0.9 10 ^3/uL (0.4-5.4); Lymphocytes % (auto) 5.6 % (10.0-50.0); Mean Corpuscular Hemoglobin 29.3 pg (28.0-32.0); Mean Corpuscular Hgb Conc. 32.2 g/dL (32.0-36.0); Mean Corpuscular Volume 91.1 fL (80.0-100.0); Monocytes # (auto) 1.5 10 ^3/uL (0-1.3); Monocytes % (auto) 8.8 % (0.0-12.0); Neutrophils # (auto) 14.2 10 ^3/uL (1.6-8.6); Neutrophils % (auto) 83.6 % (37.0-80.0); Red Blood Cells 3.43 10^6/uL (4.5-5.90); Red Cell Distribution Width 17.1 % (11.8-14.3); White Blood Cell 16.9 10^3/uL (4.4-10.8)
[2024-02-24] MEDS: SODIUM CHL 0.9% 1000 ML BAG XX ONE (07:00)
[2024-02-24 07:23] LABS: Base Excess -6.9 mmol/L (-2.0-2.0)
[2024-02-24 07:49] LABS: Alanine Aminotransferase 34 U/L (7-40); Alkaline Phosphatase 105 U/L (46-116); Anion Gap 9 (5-15); Aspartate Aminotransferase 91 U/L (13-40); Calcium 8.5 mg/dL (8.7-10.4); Carbon Dioxide 20 mmol/L (20-30); Chloride 97 mmol/L (98-107); Glucose 122 mg/dL (74-106); Magnesium 1.9 mg/dL (1.6-2.6); Sodium 126 mmol/L (136-145)
[2024-02-24 07:50] LABS: Bilirubin, Total 0.5 mg/dL (0.2-1.0); Total Protein 5.2 g/dL (5.7-8.2)
[2024-02-24 07:51] LABS: Blood Urea Nitrogen 44 mg/dL (9-23)
[2024-02-24] MEDS ORDERED: NALOXONE HCL 0.4 MG/ML VIAL ONE (08:04)
[2024-02-24] MEDS ORDERED: FLUMAZENIL 0.1 MG/ML INJ 10ML MDV IV ONE (08:04)
[2024-02-24] MEDS ORDERED: LIDOCAINE 2% JELLY 11ml (GLYDO) ONE (08:05)
[2024-02-24] MEDS ORDERED: EPINEPHrine HCL 1 MG/1 ML AMP ONE (08:05)
[2024-02-24] MEDS ORDERED: GLYCOPYRROLATE 0.2 MG/ML 1ML VIAL ONE (08:05)
[2024-02-24] MEDS ORDERED: LIDOCAINE 2%HCL (LOCAL ANESTH.) INJ 20ML MDV ONE (08:05)
[2024-02-24] MEDS: Nepro With Carb Steady 1 Liter Bottle GT SCH (14:51)
[2024-02-24] MEDS ORDERED: CALCIUM CHL 100MG/ML 500 MG in D5W 5% 100 ML IV ONE (18:00)
[2024-02-24] MEDS: SODIUM ZIRCONIUM CYCL 10 GM PAK ONE (20:03)
[2024-02-24] MEDS: DEXTROSE (50%) 50ML SYRG IV ONE (20:18)
[2024-02-24] MEDS: SODIUM BICARB 8.4% 50Meq/50ml SYR INJ IV ONE (20:19)
[2024-02-24] MEDS: InsuLIN REG 1unit/0.01ml Soln (100units/ml) IV ONE (20:19)
[2024-02-24] MEDS: SODIUM ZIRCONIUM CYCL 10 GM PAK PO ONE (20:19)
[2024-02-24] MEDS: CALCIUM GLUC 1,000mg/50ml-NS 50 ML IV ONE ×2 (20:32)
[2024-02-25] VITALS (105 sets, daily range): BP systolic 70–169; BP diastolic 26–53; PULSE 53–106; RESP 11–23; TEMP 97.3–100.2; O2SAT 93–100
[2024-02-25 04:07] LABS: Alanine Aminotransferase 16 U/L (7-40); Albumin 3.1 g/dL (3.2-4.8); Alkaline Phosphatase 102 U/L (46-116); Anion Gap 8 (5-15); Aspartate Aminotransferase 103 U/L (13-40); BUN/Creatinine Ratio 11.3 (10.0-20.0); Blood Urea Nitrogen 48 mg/dL (9-23); Calcium 8.5 mg/dL (8.7-10.4); Carbon Dioxide 25 mmol/L (20-30); Chloride 95 mmol/L (98-107); Glucose 85 mg/dL (74-106); Magnesium 1.9 mg/dL (1.6-2.6); Potassium 5.4 mmol/L (3.5-5.1); Sodium 128 mmol/L (136-145)
[2024-02-25 04:08] LABS: Bilirubin, Total 0.7 mg/dL (0.2-1.0); Total Protein 5.3 g/dL (5.7-8.2)
[2024-02-25 07:24] LABS: Base Excess -4.1 mmol/L (-2.0-2.0)
[2024-02-25] MEDS: HEPARIN 1,000 UNITS/ml 1ML VIAL IV ONE (09:15)
[2024-02-25] MEDS: VASOPRESSIN 20 UNITS in SODIUM CHL 0.9% 99 ML IV SCH (10:00)
[2024-02-25] MEDS: PHENYLEPHRINE IV 250 ML IV SCH (10:15)
[2024-02-25] MEDS: ALBUMIN 25% 100 ML IV SCH (10:20)
[2024-02-26] VITALS (97 sets, daily range): BP systolic 78–164; BP diastolic 30–50; PULSE 60–92; RESP 13–23; TEMP 92.3–99.7; O2SAT 100
[2024-02-26 05:10] LABS: Basophils # (auto) 0 10 ^3/uL (0-0.2); Basophils % (auto) 0.4 % (0.0-2.0); Eosinophils # (auto) 0.2 10 ^3/uL (0-0.8); Eosinophils % (auto) 2.5 % (0.0-7.0); Hematocrit 30.3 % (41.0-53.0); Hemoglobin 9.9 g/dL (13.5-17.5); Lymphocytes # (auto) 0.7 10 ^3/uL (0.4-5.4); Lymphocytes % (auto) 7.2 % (10.0-50.0); Mean Corpuscular Hemoglobin 29.8 pg (28.0-32.0); Mean Corpuscular Hgb Conc. 32.8 g/dL (32.0-36.0); Mean Corpuscular Volume 91.1 fL (80.0-100.0); Monocytes % (auto) 10.4 % (0.0-12.0); Neutrophils # (auto) 7.8 10 ^3/uL (1.6-8.6); Neutrophils % (auto) 79.5 % (37.0-80.0); Nucleated Red Blood Cells % 0.1 %; Red Blood Cells 3.33 10^6/uL (4.5-5.90); Red Cell Distribution Width 16.4 % (11.8-14.3); White Blood Cell 9.9 10^3/uL (4.4-10.8)
[2024-02-26 05:13] LABS: Chloride 98 mmol/L (98-107); Potassium 4.2 mmol/L (3.5-5.1)
[2024-02-26 05:14] LABS: Anion Gap 7 (5-15); Calcium 8.9 mg/dL (8.7-10.4); Carbon Dioxide 29 mmol/L (20-30)
[2024-02-26 05:19] LABS: BUN/Creatinine Ratio 10.9 (10.0-20.0); Glucose 122 mg/dL (74-106)
[2024-02-26 05:36] LABS: Blood Urea Nitrogen 35 mg/dL (9-23); Sodium 134 mmol/L (136-145)
[2024-02-26 08:05] LABS: Base Excess 0.4 mmol/L (-2.0-2.0)
[2024-02-26] MEDS: FUROSEMIDE 100 MG/10ML VIAL IV SCH (11:07)
[2024-02-26] MEDS: METOCLOPRAMIDE HCL 10 MG TAB PO SCH (14:30)
[2024-02-26] MEDS: FUROSEMIDE 100 MG/10ML VIAL IV ONE (17:05)
[2024-02-27] VITALS (109 sets, daily range): BP systolic 80–197; BP diastolic 33–134; PULSE 64–87; RESP 16–36; TEMP 98.6–101.5; O2SAT 87–100
[2024-02-27 04:09] LABS: Basophils # (auto) 0 10 ^3/uL (0-0.2); Basophils % (auto) 0.2 % (0.0-2.0); Eosinophils # (auto) 0.3 10 ^3/uL (0-0.8); Eosinophils % (auto) 3.3 % (0.0-7.0); Hematocrit 31.3 % (41.0-53.0); Hemoglobin 10.3 g/dL (13.5-17.5); Lymphocytes # (auto) 0.6 10 ^3/uL (0.4-5.4); Lymphocytes % (auto) 6.9 % (10.0-50.0); Mean Corpuscular Hemoglobin 29.9 pg (28.0-32.0); Mean Corpuscular Hgb Conc. 33.1 g/dL (32.0-36.0); Mean Corpuscular Volume 90.5 fL (80.0-100.0); Monocytes # (auto) 0.9 10 ^3/uL (0-1.3); Monocytes % (auto) 10.1 % (0.0-12.0); Neutrophils % (auto) 79.5 % (37.0-80.0); Red Blood Cells 3.45 10^6/uL (4.5-5.90); Red Cell Distribution Width 16.5 % (11.8-14.3); White Blood Cell 8.8 10^3/uL (4.4-10.8)
[2024-02-27 04:29] LABS: Chloride 96 mmol/L (98-107); Sodium 134 mmol/L (136-145)
[2024-02-27 04:30] LABS: Anion Gap 8 (5-15); Carbon Dioxide 30 mmol/L (20-30)
[2024-02-27 04:31] LABS: Calcium 8.7 mg/dL (8.5-10.1)
[2024-02-27 04:35] LABS: BUN/Creatinine Ratio 12.4 (10.0-20.0); Blood Urea Nitrogen 42 mg/dL (9-23); Glucose 116 mg/dL (74-106)
[2024-02-27 10:27] LABS: Base Excess 2.8 mmol/L (-2.0-2.0)
[2024-02-28] VITALS (105 sets, daily range): BP systolic 103–161; BP diastolic 35–53; PULSE 64–80; RESP 11–27; TEMP 95.2–98.8; O2SAT 86–100
[2024-02-28 04:08] LABS: Basophils # (auto) 0 10 ^3/uL (0-0.2); Basophils % (auto) 0.3 % (0.0-2.0); Eosinophils # (auto) 0.2 10 ^3/uL (0-0.8); Eosinophils % (auto) 2.2 % (0.0-7.0); Hematocrit 34.5 % (41.0-53.0); Hemoglobin 11.4 g/dL (13.5-17.5); Lymphocytes # (auto) 0.9 10 ^3/uL (0.4-5.4); Lymphocytes % (auto) 8.9 % (10.0-50.0); Mean Corpuscular Hemoglobin 29.8 pg (28.0-32.0); Mean Corpuscular Volume 90.3 fL (80.0-100.0); Monocytes # (auto) 1.3 10 ^3/uL (0-1.3); Monocytes % (auto) 12.2 % (0.0-12.0); Neutrophils % (auto) 76.4 % (37.0-80.0); Red Blood Cells 3.82 10^6/uL (4.5-5.90); Red Cell Distribution Width 16.8 % (11.8-14.3); White Blood Cell 10.4 10^3/uL (4.4-10.8)
[2024-02-28 04:16] LABS: Alanine Aminotransferase 12 U/L (7-40); Albumin 3.7 g/dL (3.2-4.8); Alkaline Phosphatase 168 U/L (46-116); Anion Gap 11 (5-15); Aspartate Aminotransferase 66 U/L (13-40); Bilirubin, Total 1.1 mg/dL (0.2-1.0); Blood Urea Nitrogen 43 mg/dL (9-23); Calcium 8.9 mg/dL (8.5-10.1); Carbon Dioxide 26 mmol/L (20-30); Chloride 96 mmol/L (98-107); Glucose 127 mg/dL (74-106); Potassium 4.2 mmol/L (3.5-5.1); Sodium 133 mmol/L (136-145); Total Protein 6.2 g/dL (5.7-8.2)
[2024-02-28 08:09] LABS: Base Excess 0.8 mmol/L (-2.0-2.0)
[2024-02-28] MEDS: SODIUM CHL 0.9% 1000 ML BAG XX ONE (14:57)
[2024-02-29] VITALS (109 sets, daily range): BP systolic 87–167; BP diastolic 29–52; PULSE 62–80; RESP 11–26; TEMP 98.4–99.7; O2SAT 95–100
[2024-02-29 04:40] LABS: Alanine Aminotransferase 10 U/L (7-40); Albumin 3.5 g/dL (3.2-4.8); Alkaline Phosphatase 180 U/L (46-116); Anion Gap 14 (5-15); Aspartate Aminotransferase 40 U/L (13-40); BUN/Creatinine Ratio 15.8 (10.0-20.0); Calcium 9.2 mg/dL (8.7-10.4); Carbon Dioxide 25 mmol/L (20-30); Chloride 96 mmol/L (98-107); Glucose 127 mg/dL (74-106); Potassium 3.6 mmol/L (3.5-5.1); Sodium 135 mmol/L (136-145)
[2024-02-29 04:41] LABS: Total Protein 5.8 g/dL (5.7-8.2)
[2024-02-29 04:44] LABS: Blood Urea Nitrogen 61 mg/dL (9-23)
[2024-02-29 05:14] LABS: Basophils # (auto) 0.1 10 ^3/uL (0-0.2); Basophils % (auto) 0.6 % (0.0-2.0); Eosinophils # (auto) 0.4 10 ^3/uL (0-0.8); Hematocrit 30.6 % (41.0-53.0); Lymphocytes # (auto) 1.4 10 ^3/uL (0.4-5.4); Mean Corpuscular Hemoglobin 29.5 pg (28.0-32.0); Mean Corpuscular Hgb Conc. 32.8 g/dL (32.0-36.0); Mean Corpuscular Volume 90.1 fL (80.0-100.0); Monocytes # (auto) 1.2 10 ^3/uL (0-1.3); Neutrophils % (auto) 74.4 % (37.0-80.0); Nucleated Red Blood Cells % 0.4 %; Red Cell Distribution Width 16.6 % (11.8-14.3)
[2024-02-29 08:11] LABS: Base Excess 1.3 mmol/L (-2.0-2.0)
[2024-02-29] MEDS: SODIUM CHL 0.9% 1000 ML BAG XX ONE (10:00)
[2024-02-29] MEDS: METOCLOPRAMIDE HCL 5MG/ml INJ 2ml VIAL IV SCH (15:07)
[2024-02-29] MEDS: EPOETIN ALFA-EPBX 10,000 UNIT/1ML VIAL SC ONE (20:47)
[2024-02-29] MEDS: PANTOPRAZOLE 40 MG/10 ML VIAL INJ IV SCH (21:42)
[2024-03-01] VITALS (85 sets, daily range): BP systolic 111–155; BP diastolic 32–57; PULSE 66–84; RESP 13–30; TEMP 98.8–99.7; O2SAT 95–100
[2024-03-01 03:51] LABS: Basophils # (auto) 0 10 ^3/uL (0-0.2); Basophils % (auto) 0.3 % (0.0-2.0); Eosinophils # (auto) 0.3 10 ^3/uL (0-0.8); Eosinophils % (auto) 2.6 % (0.0-7.0); Hematocrit 33.4 % (41.0-53.0); Hemoglobin 10.9 g/dL (13.5-17.5); Lymphocytes # (auto) 1.4 10 ^3/uL (0.4-5.4); Lymphocytes % (auto) 10.7 % (10.0-50.0); Mean Corpuscular Hemoglobin 29.5 pg (28.0-32.0); Mean Corpuscular Hgb Conc. 32.7 g/dL (32.0-36.0); Mean Corpuscular Volume 90.1 fL (80.0-100.0); Monocytes # (auto) 1.2 10 ^3/uL (0-1.3); Monocytes % (auto) 9.8 % (0.0-12.0); Neutrophils # (auto) 9.8 10 ^3/uL (1.6-8.6); Neutrophils % (auto) 76.6 % (37.0-80.0); Red Cell Distribution Width 16.9 % (11.8-14.3); White Blood Cell 12.7 10^3/uL (4.4-10.8)
[2024-03-01 04:12] LABS: Alanine Aminotransferase 15 U/L (7-40); Albumin 3.6 g/dL (3.2-4.8); Alkaline Phosphatase 230 U/L (46-116); Anion Gap 14 (5-15); Aspartate Aminotransferase 47 U/L (13-40); BUN/Creatinine Ratio 17.3 (10.0-20.0); Bilirubin, Total 1.1 mg/dL (0.2-1.0); Blood Urea Nitrogen 56 mg/dL (9-23); Calcium 9.2 mg/dL (8.7-10.4); Carbon Dioxide 25 mmol/L (20-30); Chloride 98 mmol/L (98-107); Glucose 147 mg/dL (74-106); Potassium 3.4 mmol/L (3.5-5.1); Sodium 137 mmol/L (136-145); Total Protein 6.2 g/dL (5.7-8.2)
[2024-03-01] MEDS: POTASSIUM CHL 20MEQ/100ML 100 ML IV ONE (05:50)
[2024-03-01 07:40] LABS: Base Excess 0.8 mmol/L (-2.0-2.0)
[2024-03-01] MEDS: NOREPINEPHRINE 8 MG/250ML KIT 250 ML IV SCH (14:00)
[2024-03-01] MEDS: Nepro With Carb Steady 1 Liter Bottle GT SCH (16:07)
[2024-03-01] MEDS: LACTULOSE 20Gm/30ML SOLN PO ONE (16:19)
[2024-03-01] MEDS: LACTULOSE 20Gm/30ML SOLN PO SCH (22:40)
[2024-03-02] VITALS (59 sets, daily range): BP systolic 93–181; BP diastolic 28–58; PULSE 61–84; RESP 11–34; TEMP 98.2–99.9; O2SAT 91–100
[2024-03-02] MEDS: hydrALAZINE HCL 20 MG/ML VL IV PRN (02:16)
[2024-03-02 03:57] LABS: Basophils # (auto) 0.1 10 ^3/uL (0-0.2); Basophils % (auto) 0.4 % (0.0-2.0); Eosinophils # (auto) 0.3 10 ^3/uL (0-0.8); Eosinophils % (auto) 1.5 % (0.0-7.0); Hematocrit 34.4 % (41.0-53.0); Lymphocytes # (auto) 1.8 10 ^3/uL (0.4-5.4); Lymphocytes % (auto) 9.4 % (10.0-50.0); Mean Corpuscular Hemoglobin 28.9 pg (28.0-32.0); Mean Corpuscular Hgb Conc. 32.1 g/dL (32.0-36.0); Monocytes # (auto) 1.7 10 ^3/uL (0-1.3); Monocytes % (auto) 8.8 % (0.0-12.0); Neutrophils # (auto) 15.5 10 ^3/uL (1.6-8.6); Neutrophils % (auto) 79.9 % (37.0-80.0); Red Blood Cells 3.82 10^6/uL (4.5-5.90); White Blood Cell 19.4 10^3/uL (4.4-10.8)
[2024-03-02 04:15] LABS: Alanine Aminotransferase 27 U/L (7-40); Alkaline Phosphatase 274 U/L (46-116); Anion Gap 11 (5-15); BUN/Creatinine Ratio 20.2 (10.0-20.0); Calcium 9.4 mg/dL (8.7-10.4); Carbon Dioxide 26 mmol/L (20-30); Chloride 101 mmol/L (98-107); Glucose 163 mg/dL (74-106); Potassium 3.2 mmol/L (3.5-5.1); Sodium 138 mmol/L (136-145)
[2024-03-02 04:16] LABS: Albumin 3.7 g/dL (3.2-4.8); Aspartate Aminotransferase 64 U/L (13-40); Total Protein 6.3 g/dL (5.7-8.2)
[2024-03-02 04:42] LABS: Blood Urea Nitrogen 71 mg/dL (9-23)
[2024-03-02 07:47] LABS: Base Excess 1.1 mmol/L (-2.0-2.0)
[2024-03-02] MEDS: POTASSIUM EFFERVESENT TAB 25 MEQ PO ONE (08:34)
[2024-03-03] VITALS (75 sets, daily range): BP systolic 75–156; BP diastolic 38–86; PULSE 67–94; RESP 11–28; TEMP 98.1–99.1; O2SAT 91–100
[2024-03-03 03:44] LABS: Basophils # (auto) 0.3 10 ^3/uL (0-0.2); Basophils % (auto) 1.3 % (0.0-2.0); Eosinophils # (auto) 0.3 10 ^3/uL (0-0.8); Eosinophils % (auto) 1.6 % (0.0-7.0); Hematocrit 31.5 % (41.0-53.0); Hemoglobin 10.2 g/dL (13.5-17.5); Lymphocytes # (auto) 1.6 10 ^3/uL (0.4-5.4); Lymphocytes % (auto) 7.7 % (10.0-50.0); Mean Corpuscular Hemoglobin 29.2 pg (28.0-32.0); Mean Corpuscular Hgb Conc. 32.3 g/dL (32.0-36.0); Mean Corpuscular Volume 90.5 fL (80.0-100.0); Monocytes # (auto) 1.6 10 ^3/uL (0-1.3); Monocytes % (auto) 7.6 % (0.0-12.0); Neutrophils # (auto) 17.5 10 ^3/uL (1.6-8.6); Neutrophils % (auto) 81.8 % (37.0-80.0); Nucleated Red Blood Cells % 0.1 %; Red Blood Cells 3.48 10^6/uL (4.5-5.90); Red Cell Distribution Width 16.9 % (11.8-14.3); White Blood Cell 21.4 10^3/uL (4.4-10.8)
[2024-03-03 03:58] LABS: Alanine Aminotransferase 24 U/L (7-40); Albumin 3.5 g/dL (3.2-4.8); Alkaline Phosphatase 224 U/L (46-116); Anion Gap 10 (5-15); Aspartate Aminotransferase 40 U/L (13-40); BUN/Creatinine Ratio 22.6 (10.0-20.0); Bilirubin, Total 0.9 mg/dL (0.2-1.0); Calcium 9.3 mg/dL (8.7-10.4); Carbon Dioxide 28 mmol/L (20-30); Chloride 101 mmol/L (98-107); Glucose 175 mg/dL (74-106); Potassium 3.5 mmol/L (3.5-5.1); Sodium 139 mmol/L (136-145); Total Protein 5.9 g/dL (5.7-8.2)
[2024-03-03 04:07] LABS: Blood Urea Nitrogen 82 mg/dL (9-23)
[2024-03-03 09:17] LABS: Base Excess 3.6 mmol/L (-2.0-2.0)
[2024-03-03] MEDS ORDERED: VANCOMYCIN PER PHARMACY 0 MG IV SCH (15:00)
[2024-03-03] MEDS ORDERED: VANCOMYCIN 1GM/200ML 200 ML IV ONE (15:45)
[2024-03-03] MEDS ORDERED: ARTIFICIAL TEARS 15ml EACHEYE PRN (16:00)
[2024-03-03] MEDS: VANCOMYCIN 1GM/200ML 200 ML IV ONE (19:13)
[2024-03-03] MEDS: PIPERACILLIN-TAZOB 2.25GM 50 ML IV SCH (21:01)
[2024-03-03] MEDS ORDERED: HEPARIN 1,000 UNITS/ml 1ML VIAL IV ONE ×2 (23:30)
[2024-03-04] VITALS (114 sets, daily range): BP systolic 88–151; BP diastolic 28–62; PULSE 53–117; RESP 11–24; TEMP 32.9; O2SAT 97–100
[2024-03-04] MEDS: HEPARIN 1,000 UNITS/ml 1ML VIAL IV ONE ×2 (00:45→01:40)
[2024-03-04 07:33] LABS: Hematocrit 32.8 % (41.0-53.0); Hemoglobin 10.3 g/dL (13.5-17.5); Mean Corpuscular Hemoglobin 28.8 pg (28.0-32.0); Mean Corpuscular Hgb Conc. 31.5 g/dL (32.0-36.0); Mean Corpuscular Volume 91.4 fL (80.0-100.0); Red Blood Cells 3.59 10^6/uL (4.5-5.90); Red Cell Distribution Width 17.8 % (11.8-14.3)
[2024-03-04 07:39] LABS: Basophils % (manual) 0 (0.0-2.0); Blast Cells 0; Eosinophils % (manual) 0 (0-7); Metamyelocytes % 0; Myelocytes % 0; Promyelocytes % 0; Reactive Lymphocytes 0
[2024-03-04 07:58] LABS: Chloride 102 mmol/L (98-107); Potassium 3.5 mmol/L (3.5-5.1); Sodium 141 mmol/L (136-145)
[2024-03-04 07:59] LABS: Anion Gap 10 (5-15); Calcium 9.5 mg/dL (8.5-10.1); Carbon Dioxide 29 mmol/L (20-30)
[2024-03-04 08:02] LABS: Band Neutrophils % (manual) 4; Lymphocytes % (manual) 5 (10.0-50.0); Monocytes % (manual) 3 (0-12); Platelet Estimate Adequate
[2024-03-04 08:04] LABS: BUN/Creatinine Ratio 21.3 (10.0-20.0); Glucose 154 mg/dL (74-106)
[2024-03-04 08:07] LABS: Blood Urea Nitrogen 72 mg/dL (9-23)
[2024-03-05] VITALS (88 sets, daily range): BP systolic 88–154; BP diastolic 31–53; PULSE 61–92; RESP 10–25; TEMP 97–99.1; O2SAT 96–100
[2024-03-05 04:26] LABS: Basophils # (auto) 0.1 10 ^3/uL (0-0.2); Eosinophils # (auto) 0.1 10 ^3/uL (0-0.8); Lymphocytes # (auto) 1.9 10 ^3/uL (0.4-5.4); Red Cell Distribution Width 17.5 % (11.8-14.3)
[2024-03-05 04:30] LABS: Basophils % (auto) 0.3 % (0.0-2.0); Eosinophils % (auto) 0.5 % (0.0-7.0); Hematocrit 31.5 % (41.0-53.0); Hemoglobin 10.1 g/dL (13.5-17.5); Lymphocytes % (auto) 8.1 % (10.0-50.0); Mean Corpuscular Hemoglobin 29.1 pg (28.0-32.0); Mean Corpuscular Volume 90.9 fL (80.0-100.0); Monocytes # (auto) 1.5 10 ^3/uL (0-1.3); Monocytes % (auto) 6.7 % (0.0-12.0); Neutrophils # (auto) 19.3 10 ^3/uL (1.6-8.6); Neutrophils % (auto) 84.4 % (37.0-80.0); Red Blood Cells 3.47 10^6/uL (4.5-5.90); White Blood Cell 22.9 10^3/uL (4.4-10.8)
[2024-03-05 04:41] LABS: Alanine Aminotransferase 18 U/L (7-40); Albumin 3.6 g/dL (3.2-4.8); Alkaline Phosphatase 183 U/L (46-116); Anion Gap 14 (5-15); Aspartate Aminotransferase 31 U/L (13-40); BUN/Creatinine Ratio 21.8 (10.0-20.0); Bilirubin, Total 0.9 mg/dL (0.2-1.0); Calcium 9.1 mg/dL (8.5-10.1); Carbon Dioxide 26 mmol/L (20-30); Chloride 102 mmol/L (98-107); Glucose 152 mg/dL (74-106); Potassium 3.1 mmol/L (3.5-5.1); Sodium 142 mmol/L (136-145)
[2024-03-05 04:42] LABS: Total Protein 6.1 g/dL (5.7-8.2)
[2024-03-05 04:49] LABS: Blood Urea Nitrogen 85 mg/dL (9-23)
[2024-03-05 06:55] LABS: Base Excess 0.9 mmol/L (-2.0-2.0)
[2024-03-05] MEDS: VANCOMYCIN 1GM/200ML 200 ML IV ONE (10:19)
[2024-03-05] MEDS ORDERED: ALBUMIN 25% 100 ML IV PRN (13:30)
[2024-03-05] MEDS: SODIUM CHL 0.9% 1000 ML BAG XX ONE (13:30)
[2024-03-05] MEDS: NOREPINEPHRINE 8 MG/250ML KIT 250 ML IV SCH (13:35)
[2024-03-06] VITALS (68 sets, daily range): BP systolic 81–148; BP diastolic 16–93; PULSE 62–86; RESP 9–29; TEMP 97.4–98.3; O2SAT 89–98
[2024-03-06 08:07] LABS: Chloride 103 mmol/L (98-107); Potassium 3.1 mmol/L (3.5-5.1); Sodium 141 mmol/L (136-145)
[2024-03-06 08:08] LABS: Anion Gap 15 (5-15); Basophils # (auto) 0.2 10 ^3/uL (0-0.2); Carbon Dioxide 23 mmol/L (20-30); Eosinophils # (auto) 0.2 10 ^3/uL (0-0.8); Hematocrit 31.1 % (41.0-53.0); Hemoglobin 9.8 g/dL (13.5-17.5); Lymphocytes % (auto) 10.4 % (10.0-50.0); Mean Corpuscular Hemoglobin 29.1 pg (28.0-32.0); Mean Corpuscular Hgb Conc. 31.6 g/dL (32.0-36.0); Monocytes # (auto) 1.2 10 ^3/uL (0-1.3); Monocytes % (auto) 6.1 % (0.0-12.0); Neutrophils # (auto) 15.5 10 ^3/uL (1.6-8.6); Neutrophils % (auto) 81.5 % (37.0-80.0); Red Blood Cells 3.39 10^6/uL (4.5-5.90); Red Cell Distribution Width 18.3 % (11.8-14.3)
[2024-03-06 08:09] LABS: Calcium 9.3 mg/dL (8.5-10.1)
[2024-03-06 08:14] LABS: BUN/Creatinine Ratio 19.4 (10.0-20.0); Glucose 126 mg/dL (74-106)
[2024-03-06 08:15] LABS: Blood Urea Nitrogen 73 mg/dL (9-23)
[2024-03-06] MEDS: POTASSIUM CHL 20MEQ/100ML 100 ML IV ONE (11:22)
[2024-03-06] MEDS: VANCOMYCIN 500 MG in D5W 5% 100 ML IV ONE (17:35)
[2024-03-06] MEDS ORDERED: ALBUTEROL SULF 2.5 MG/0.5ML(0.5%) NEB SOLN NEB PRN (18:30)
[2024-03-07] VITALS (34 sets, daily range): BP systolic 119–153; BP diastolic 33–93; PULSE 62–75; RESP 10–23; TEMP 97.1–99.3; O2SAT 92–98
[2024-03-07 04:04] LABS: Basophils # (auto) 0.1 10 ^3/uL (0-0.2); Basophils % (auto) 0.8 % (0.0-2.0); Eosinophils # (auto) 0.2 10 ^3/uL (0-0.8); Eosinophils % (auto) 1.2 % (0.0-7.0); Hematocrit 31.1 % (41.0-53.0); Hemoglobin 9.9 g/dL (13.5-17.5); Lymphocytes # (auto) 1.5 10 ^3/uL (0.4-5.4); Lymphocytes % (auto) 10.8 % (10.0-50.0); Mean Corpuscular Hemoglobin 28.9 pg (28.0-32.0); Mean Corpuscular Hgb Conc. 31.9 g/dL (32.0-36.0); Mean Corpuscular Volume 90.9 fL (80.0-100.0); Monocytes # (auto) 1.2 10 ^3/uL (0-1.3); Monocytes % (auto) 8.4 % (0.0-12.0); Neutrophils % (auto) 78.8 % (37.0-80.0); Red Blood Cells 3.42 10^6/uL (4.5-5.90); Red Cell Distribution Width 17.7 % (11.8-14.3); White Blood Cell 13.9 10^3/uL (4.4-10.8)
[2024-03-07 04:12] LABS: Anion Gap 14 (5-15); Calcium 9.4 mg/dL (8.7-10.4); Carbon Dioxide 23 mmol/L (20-30); Chloride 105 mmol/L (98-107); Potassium 3.2 mmol/L (3.5-5.1); Sodium 142 mmol/L (136-145)
[2024-03-07 04:18] LABS: BUN/Creatinine Ratio 22.3 (10.0-20.0); Glucose 118 mg/dL (74-106)
[2024-03-07 04:21] LABS: Blood Urea Nitrogen 91 mg/dL (9-23)
[2024-03-07 04:23] LABS: INR 1.12 (0.9-1.15); Partial Thromboplastin Time 22.9 SEC (24.5-34.5); Prothrombin Time 11.8 sec (9.3-11.8)
[2024-03-07] MEDS: fentaNYL CITRATE 100 MCG/2 ML VL ONE (08:59)
[2024-03-07] MEDS: LIDOCAINE 2%HCL (LOCAL ANESTH.) INJ 20ML MDV ONE (08:59)
[2024-03-07] MEDS: ceFAZolin 1GM/50ML 50 ML IV ONE (08:59)
[2024-03-07] MEDS: MIDAZOLAM HCL 2MG/2ML 2ml VIAL (1mg/ml) ONE (08:59)
[2024-03-07] MEDS: IODIXANOL 320MG/ML 100ML BTL IV ONE (09:56)
[2024-03-07] MEDS: HEPARIN SODIUM (PORCINE) 5000 UNITS/ML 1ML VIAL ONE (10:26)
[2024-03-07] MEDS ORDERED: ALBUMIN 25% 50 ML IV SCH (16:00)
[2024-03-07] MEDS: ALBUMIN 25% 50 ML IV SCH (16:24)
[2024-03-07] MEDS: HEPARIN SODIUM (PORCINE) 5000 UNITS/ML 1ML VIAL IV ONE (16:44)
[2024-03-07] MEDS: CATHFLO ACTIVASE (ALTEPLASE) 2 MG VIAL IV ONE ×2 (17:00)
[2024-03-07] MEDS ORDERED: CLINIMIX PER PHARMACY 0 ML IV SCH (17:45)
[2024-03-07] MEDS: VANCOMYCIN 500 MG in D5W 5% 100 ML IV ONE (18:00)
[2024-03-07 18:39] LABS: Magnesium 2.7 mg/dL (1.6-2.6)
[2024-03-07 18:40] LABS: Phosphorus 4.7 mg/dL (2.4-5.1)
[2024-03-07] MEDS: POTASSIUM CHL 20MEQ/100ML 100 ML IV ONE (20:48)
[2024-03-07] MEDS: AMINO ACID INFUSION IN D5W 1,000 ML IV NR (21:20)
[2024-03-07] MEDS ORDERED: DEXTROSE (50%) 50ML SYRG IV SCH (21:45)
[2024-03-08] VITALS (23 sets, daily range): BP systolic 124–155; BP diastolic 36–54; PULSE 60–91; RESP 10–25; TEMP 98–99.1; O2SAT 93–98
[2024-03-08] MEDS: InsuLIN REG 1unit/0.01ml Soln (100units/ml) SC SCH (00:26)
[2024-03-08] MEDS: ACCU-CHEK COMFORT CURVE STRIP VI SCH (00:27)
[2024-03-08 05:33] LABS: Alanine Aminotransferase 10 U/L (7-40); Albumin 3.8 g/dL (3.2-4.8); Alkaline Phosphatase 146 U/L (46-116); Anion Gap 14 (5-15); Aspartate Aminotransferase 29 U/L (13-40); BUN/Creatinine Ratio 20.5 (10.0-20.0); Calcium 9.5 mg/dL (8.5-10.1); Carbon Dioxide 21 mmol/L (20-30); Chloride 108 mmol/L (98-107); Glucose 129 mg/dL (74-106); Phosphorus 3.8 mg/dL (2.4-5.1); Potassium 3.4 mmol/L (3.5-5.1); Sodium 143 mmol/L (136-145); Triglycerides 159 mg/dL (< 150)
[2024-03-08 05:34] LABS: Total Protein 6.5 g/dL (5.7-8.2)
[2024-03-08 05:35] LABS: Blood Urea Nitrogen 70 mg/dL (9-23)
[2024-03-08 06:03] LABS: Magnesium 2.5 mg/dL (1.6-2.6)
[2024-03-08] MEDS: POTASSIUM CHL 20MEQ/100ML 100 ML IV ONE (08:12)
[2024-03-09] VITALS (33 sets, daily range): BP systolic 93–161; BP diastolic 33–52; PULSE 61–90; RESP 8–24; TEMP 98.2–98.6; O2SAT 88–98
[2024-03-09 06:13] LABS: Basophils # (auto) 0.1 10 ^3/uL (0-0.2); Basophils % (auto) 0.9 % (0.0-2.0); Eosinophils # (auto) 0.3 10 ^3/uL (0-0.8); Eosinophils % (auto) 2.3 % (0.0-7.0); Hematocrit 31.4 % (41.0-53.0); Lymphocytes # (auto) 1.4 10 ^3/uL (0.4-5.4); Lymphocytes % (auto) 10.7 % (10.0-50.0); Mean Corpuscular Hemoglobin 29.3 pg (28.0-32.0); Mean Corpuscular Volume 91.7 fL (80.0-100.0); Monocytes # (auto) 1.3 10 ^3/uL (0-1.3); Monocytes % (auto) 10.1 % (0.0-12.0); Neutrophils # (auto) 9.8 10 ^3/uL (1.6-8.6); Red Blood Cells 3.42 10^6/uL (4.5-5.90); Red Cell Distribution Width 18.4 % (11.8-14.3); White Blood Cell 12.8 10^3/uL (4.4-10.8)
[2024-03-09 06:38] LABS: Albumin 3.8 g/dL (3.2-4.8); Alkaline Phosphatase 145 U/L (46-116); Anion Gap 12 (5-15); Aspartate Aminotransferase 26 U/L (13-40); BUN/Creatinine Ratio 28.2 (10.0-20.0); Bilirubin, Total 0.9 mg/dL (0.2-1.0); Calcium 9.7 mg/dL (8.5-10.1); Carbon Dioxide 23 mmol/L (20-30); Chloride 109 mmol/L (98-107); Glucose 130 mg/dL (74-106); Potassium 3.2 mmol/L (3.5-5.1); Sodium 144 mmol/L (136-145); Total Protein 6.4 g/dL (5.7-8.2)
[2024-03-09 06:45] LABS: Alanine Aminotransferase < 9 U/L (7-40); Blood Urea Nitrogen 82 mg/dL (9-23)
[2024-03-09] MEDS: PANTOPRAZOLE 40 MG/10 ML VIAL INJ IV SCH (10:00)
[2024-03-09] MEDS: ALBUMIN 25% 100 ML IV ONE (10:01)
[2024-03-09] MEDS: VANCOMYCIN 500 MG in D5W 5% 100 ML IV ONE (16:37)
[2024-03-09] MEDS: POTASSIUM CHL 20MEQ/100ML 100 ML IV ONE (17:20)
[2024-03-09] MEDS: PIPERACILLIN-TAZOB 2.25GM 50 ML IV SCH (17:23)
[2024-03-10] VITALS (21 sets, daily range): BP systolic 84–150; BP diastolic 33–49; PULSE 62–76; RESP 10–26; TEMP 98–99.2; O2SAT 82–100
[2024-03-10 07:35] LABS: Alanine Aminotransferase 10 U/L (7-40); Albumin 4.1 g/dL (3.2-4.8); Alkaline Phosphatase 149 U/L (46-116); Anion Gap 13 (5-15); Aspartate Aminotransferase 36 U/L (13-40); BUN/Creatinine Ratio 19.5 (10.0-20.0); Calcium 9.6 mg/dL (8.5-10.1); Carbon Dioxide 22 mmol/L (20-30); Chloride 105 mmol/L (98-107); Glucose 126 mg/dL (74-106); Potassium 3.5 mmol/L (3.5-5.1); Sodium 140 mmol/L (136-145)
[2024-03-10 07:36] LABS: Phosphorus 2.8 mg/dL (2.4-5.1); Total Protein 6.7 g/dL (5.7-8.2)
[2024-03-10 07:37] LABS: Blood Urea Nitrogen 57 mg/dL (9-23)
[2024-03-10 09:39] LABS: Hepatitis B Surface Antigen Negative (Negative)
[2024-03-10 10:00] LABS: Hepatitis A Ab IgM Negative; Hepatitis B Core IgM Negative
[2024-03-10 10:01] LABS: Hepatitis C Antibody Negative (Negative)
[2024-03-10] MEDS: SODIUM CHLORIDE 0.9% 1,000 ML IV SCH (11:53)
[2024-03-10] MEDS: DOPamine 1600MCG/ML D5W 250 ML IV SCH (11:54)
[2024-03-10 12:49] LABS: Magnesium 2.2 mg/dL (1.6-2.6)
[2024-03-10 13:25] LABS: Magnesium 2.4 mg/dL (1.6-2.6)
[2024-03-10] MEDS: VANCOMYCIN 500 MG in D5W 5% 100 ML IV ONE (20:39)
[2024-03-11] VITALS (15 sets, daily range): BP systolic 101–137; BP diastolic 30–46; PULSE 62–77; RESP 10–33; TEMP 97.3–98.9; O2SAT 92–98
[2024-03-11 05:13] LABS: Basophils # (auto) 0.1 10 ^3/uL (0-0.2); Basophils % (auto) 0.9 % (0.0-2.0); Eosinophils # (auto) 0.4 10 ^3/uL (0-0.8); Eosinophils % (auto) 2.9 % (0.0-7.0); Hematocrit 31.6 % (41.0-53.0); Hemoglobin 10.1 g/dL (13.5-17.5); Lymphocytes # (auto) 1.5 10 ^3/uL (0.4-5.4); Lymphocytes % (auto) 12.4 % (10.0-50.0); Mean Corpuscular Hemoglobin 29.3 pg (28.0-32.0); Mean Corpuscular Hgb Conc. 32.1 g/dL (32.0-36.0); Mean Corpuscular Volume 91.3 fL (80.0-100.0); Monocytes # (auto) 1.6 10 ^3/uL (0-1.3); Monocytes % (auto) 12.5 % (0.0-12.0); Neutrophils # (auto) 8.8 10 ^3/uL (1.6-8.6); Neutrophils % (auto) 71.3 % (37.0-80.0); Nucleated Red Blood Cells % 0.2 %; Red Blood Cells 3.46 10^6/uL (4.5-5.90); Red Cell Distribution Width 18.3 % (11.8-14.3); White Blood Cell 12.4 10^3/uL (4.4-10.8)
[2024-03-11 05:23] LABS: Alanine Aminotransferase 14 U/L (7-40); Albumin 3.8 g/dL (3.2-4.8); Alkaline Phosphatase 148 U/L (46-116); Anion Gap 11 (5-15); Aspartate Aminotransferase 28 U/L (13-40); BUN/Creatinine Ratio 22.9 (10.0-20.0); Bilirubin, Total 0.9 mg/dL (0.2-1.0); Calcium 9.6 mg/dL (8.5-10.1); Carbon Dioxide 22 mmol/L (20-30); Chloride 105 mmol/L (98-107); Glucose 117 mg/dL (74-106); Potassium 3.4 mmol/L (3.5-5.1); Sodium 138 mmol/L (136-145); Total Protein 6.4 g/dL (5.7-8.2)
[2024-03-11 05:37] LABS: Blood Urea Nitrogen 80 mg/dL (9-23)
[2024-03-11 07:27] LABS: Magnesium 2.1 mg/dL (1.6-2.6)
[2024-03-11] MEDS: POTASSIUM CHL 20MEQ/100ML 100 ML IV ONE (10:48)
[2024-03-11] MEDS: ERGOCALCIFEROL 50,000 UNIT(1.25MG) CAP PO SCH (13:15)
[2024-03-11 21:25] LABS: % Iron Saturation 14.1 % (20-55)
[2024-03-12] VITALS (8 sets, daily range): BP systolic 100–154; BP diastolic 40–59; PULSE 65–75; RESP 16–20; TEMP 97.5–98.5; O2SAT 97–100
[2024-03-12 05:47] LABS: Alanine Aminotransferase 16 U/L (7-40); Alkaline Phosphatase 149 U/L (46-116); Anion Gap 13 (5-15); BUN/Creatinine Ratio 23.5 (10.0-20.0); Blood Urea Nitrogen 72 mg/dL (9-23); Calcium 9.5 mg/dL (8.5-10.1); Carbon Dioxide 18 mmol/L (20-30); Chloride 106 mmol/L (98-107); Glucose 118 mg/dL (74-106); Magnesium 1.9 mg/dL (1.6-2.6); Potassium 3.5 mmol/L (3.5-5.1); Sodium 137 mmol/L (136-145)
[2024-03-12 05:48] LABS: Albumin 3.8 g/dL (3.2-4.8); Aspartate Aminotransferase 25 U/L (13-40); Phosphorus 3.3 mg/dL (2.4-5.1)
[2024-03-12 05:49] LABS: Bilirubin, Total 0.9 mg/dL (0.2-1.0); Total Protein 6.5 g/dL (5.7-8.2)
[2024-03-12] MEDS: SODIUM CHL 0.9% 1000 ML BAG XX ONE (07:00)
[2024-03-12] MEDS: CATHFLO ACTIVASE (ALTEPLASE) 2 MG VIAL IV ONE ×2 (14:35)
[2024-03-12] MEDS: EPOETIN ALFA-EPBX 10,000 UNIT/1ML VIAL SC ONE (21:53)
[2024-03-13] VITALS (8 sets, daily range): BP systolic 112–155; BP diastolic 33–56; PULSE 60–68; RESP 16–18; TEMP 97.8–98.8; O2SAT 97–99
[2024-03-13 05:38] LABS: Potassium 3.7 mmol/L (3.5-5.1)
[2024-03-13 05:39] LABS: Calcium 9.5 mg/dL (8.5-10.1)
[2024-03-13 05:44] LABS: BUN/Creatinine Ratio 25.9 (10.0-20.0)
[2024-03-13 05:46] LABS: Albumin 3.9 g/dL (3.2-4.8)
[2024-03-13] MEDS: POTASSIUM CHL 20MEQ/100ML 100 ML IV SCH (12:15)
[2024-03-13] MEDS: AMINO ACID INFUSION IN D5W 1,000 ML IV SCH (18:58)
[2024-03-13] MEDS: ceFAZolin 1GM/50ML 50 ML IV ONE (22:45)
[2024-03-14] VITALS (8 sets, daily range): BP systolic 114–161; BP diastolic 42–62; PULSE 61–77; RESP 16–21; TEMP 97.1–98.4; O2SAT 93–100
[2024-03-14 06:01] LABS: Basophils # (auto) 0.1 10 ^3/uL (0-0.2); Basophils % (auto) 1.2 % (0.0-2.0); Eosinophils # (auto) 0.4 10 ^3/uL (0-0.8); Eosinophils % (auto) 3.4 % (0.0-7.0); Hematocrit 35.4 % (41.0-53.0); Hemoglobin 11.2 g/dL (13.5-17.5); Lymphocytes # (auto) 1.4 10 ^3/uL (0.4-5.4); Lymphocytes % (auto) 13.7 % (10.0-50.0); Mean Corpuscular Hemoglobin 29.3 pg (28.0-32.0); Mean Corpuscular Hgb Conc. 31.6 g/dL (32.0-36.0); Mean Corpuscular Volume 92.7 fL (80.0-100.0); Monocytes # (auto) 1.5 10 ^3/uL (0-1.3); Monocytes % (auto) 14.6 % (0.0-12.0); Neutrophils # (auto) 7.1 10 ^3/uL (1.6-8.6); Neutrophils % (auto) 67.1 % (37.0-80.0); Red Blood Cells 3.82 10^6/uL (4.5-5.90); Red Cell Distribution Width 18.9 % (11.8-14.3); White Blood Cell 10.6 10^3/uL (4.4-10.8)
[2024-03-14 06:15] LABS: INR 1.29 (0.9-1.15); Partial Thromboplastin Time 26.8 SEC (24.5-34.5); Prothrombin Time 13.4 sec (9.3-11.8)
[2024-03-14 06:25] LABS: Calcium 9.6 mg/dL (8.5-10.1)
[2024-03-14 06:30] LABS: BUN/Creatinine Ratio 24.7 (10.0-20.0)
[2024-03-14 06:31] LABS: Albumin 3.9 g/dL (3.2-4.8)
[2024-03-14 06:32] LABS: Phosphorus 2.7 mg/dL (2.4-5.1)
[2024-03-14] MEDS ORDERED: SODIUM CHLORIDE LOCK 10 ML ONE (08:14)
[2024-03-14] MEDS ORDERED: MIDAZOLAM HCL 5 MG/ML-1ML VIAL ONE (08:14)
[2024-03-14] MEDS ORDERED: diphenhdrAMINE HCL 50 MG/1 ML VL ONE (08:14)
[2024-03-14] MEDS ORDERED: LIDOCAINE VISCOUS 2% 15ML UD ONE (08:14)
[2024-03-14] MEDS ORDERED: fentaNYL CITRATE 100 MCG/2 ML VL ONE (08:14)
[2024-03-14] MEDS: ceFAZolin 1GM/50ML 50 ML IV ONE (11:30)
[2024-03-14] MEDS: SODIUM CHLORIDE 0.9% 1,000 ML IV ONE (17:15)
[2024-03-15] VITALS (8 sets, daily range): BP systolic 103–127; BP diastolic 45–59; PULSE 65–74; RESP 16–18; TEMP 97.6–98.3; O2SAT 93–96
[2024-03-15 06:18] LABS: Basophils # (auto) 0.1 10 ^3/uL (0-0.2); Eosinophils # (auto) 0.4 10 ^3/uL (0-0.8); Eosinophils % (auto) 3.7 % (0.0-7.0); Hemoglobin 11.6 g/dL (13.5-17.5); Lymphocytes # (auto) 1.4 10 ^3/uL (0.4-5.4); Lymphocytes % (auto) 14.1 % (10.0-50.0); Mean Corpuscular Hemoglobin 29.8 pg (28.0-32.0); Mean Corpuscular Hgb Conc. 32.3 g/dL (32.0-36.0); Mean Corpuscular Volume 92.4 fL (80.0-100.0); Monocytes # (auto) 1.4 10 ^3/uL (0-1.3); Monocytes % (auto) 13.5 % (0.0-12.0); Neutrophils # (auto) 6.9 10 ^3/uL (1.6-8.6); Neutrophils % (auto) 67.7 % (37.0-80.0); Red Cell Distribution Width 18.5 % (11.8-14.3); White Blood Cell 10.2 10^3/uL (4.4-10.8)
[2024-03-15 06:25] LABS: INR 1.34 (0.9-1.15); Partial Thromboplastin Time 30.2 SEC (24.5-34.5); Prothrombin Time 13.9 sec (9.3-11.8)
[2024-03-15 06:45] LABS: Alanine Aminotransferase 32 U/L (7-40); Alkaline Phosphatase 174 U/L (46-116); Anion Gap 12 (5-15); Aspartate Aminotransferase 31 U/L (13-40); BUN/Creatinine Ratio 27.3 (10.0-20.0); Blood Urea Nitrogen 70 mg/dL (9-23); Calcium 9.8 mg/dL (8.5-10.1); Carbon Dioxide 19 mmol/L (20-30); Chloride 109 mmol/L (98-107); Glucose 120 mg/dL (74-106); Magnesium 1.8 mg/dL (1.6-2.6); Potassium 3.6 mmol/L (3.5-5.1); Sodium 140 mmol/L (136-145)
[2024-03-15 06:46] LABS: Phosphorus 2.9 mg/dL (2.4-5.1); Total Protein 6.8 g/dL (5.7-8.2)
[2024-03-15] MEDS: POTASSIUM CHL 20MEQ/100ML 100 ML IV ONE (14:58)
[2024-03-15] MEDS: FUROSEMIDE 100 MG/10ML VIAL IV ONE (16:56)
[2024-03-16 06:16] LABS: Alanine Aminotransferase 34 U/L (7-40); Albumin 3.9 g/dL (3.2-4.8); Alkaline Phosphatase 175 U/L (46-116); Anion Gap 12 (5-15); Aspartate Aminotransferase 31 U/L (13-40); BUN/Creatinine Ratio 27.6 (10.0-20.0); Blood Urea Nitrogen 72 mg/dL (9-23); Calcium 9.7 mg/dL (8.5-10.1); Carbon Dioxide 18 mmol/L (20-30); Chloride 110 mmol/L (98-107); Glucose 120 mg/dL (74-106); Magnesium 1.8 mg/dL (1.6-2.6); Potassium 3.6 mmol/L (3.5-5.1); Sodium 140 mmol/L (136-145)
[2024-03-16 06:17] LABS: Total Protein 6.6 g/dL (5.7-8.2)
[2024-03-16 08:00] VITALS: PULSE 70
[2024-03-16] MEDS: FUROSEMIDE 100 MG/10ML VIAL IV SCH (09:06)
[2024-03-16 09:22] VITALS: BP 142/52; PULSE 71; RESP 20; TEMP 97.7; O2SAT 98
[2024-03-16 11:31] VITALS: BP 129/49; PULSE 69; RESP 20; TEMP 98.1; O2SAT 99
[2024-03-16 17:00] VITALS: BP 116/54; PULSE 70; RESP 20; TEMP 97.8; O2SAT 98
[2024-03-16] MEDS: POTASSIUM CHL 20MEQ/100ML 100 ML IV ONE (17:31)
[2024-03-16 20:00] VITALS: PULSE 65
[2024-03-16 21:00] VITALS: BP 135/51; PULSE 96; RESP 19; TEMP 97.6; O2SAT 98
[2024-03-16] MEDS: HEPARIN SODIUM (PORCINE) 5000 UNITS/ML 1ML VIAL SC SCH (22:03)
[2024-03-17] VITALS (8 sets, daily range): BP systolic 117–161; BP diastolic 44–53; PULSE 64–78; RESP 19–20; TEMP 97.6–98; O2SAT 97–99
[2024-03-17 07:46] LABS: Alanine Aminotransferase 37 U/L (7-40); Albumin 4.1 g/dL (3.2-4.8); Alkaline Phosphatase 199 U/L (46-116); Anion Gap 13 (5-15); Aspartate Aminotransferase 36 U/L (13-40); BUN/Creatinine Ratio 22.3 (10.0-20.0); Calcium 9.9 mg/dL (8.5-10.1); Carbon Dioxide 16 mmol/L (20-30); Chloride 111 mmol/L (98-107); Glucose 122 mg/dL (74-106); Sodium 140 mmol/L (136-145)
[2024-03-17 07:47] LABS: Bilirubin, Total 1.2 mg/dL (0.2-1.0); Total Protein 6.9 g/dL (5.7-8.2)
[2024-03-17 07:51] LABS: Blood Urea Nitrogen 51 mg/dL (9-23)
[2024-03-17 08:39] LABS: Magnesium 1.9 mg/dL (1.6-2.6)
[2024-03-17] MEDS: SODIUM BICARB 50mEq/50ml Vial 75 ML in SOD CHL 0.45% 1,000 ML IV SCH (10:15)
[2024-03-18] VITALS (7 sets, daily range): BP systolic 116–145; BP diastolic 50–69; PULSE 70–79; RESP 20–21; TEMP 97.1–98.1; O2SAT 98–100
[2024-03-18 08:50] LABS: Alanine Aminotransferase 37 U/L (7-40); Alkaline Phosphatase 215 U/L (46-116); Aspartate Aminotransferase 41 U/L (13-40); BUN/Creatinine Ratio 26.5 (10.0-20.0); Blood Urea Nitrogen 57 mg/dL (9-23); Calcium 10.1 mg/dL (8.5-10.1); Carbon Dioxide 17 mmol/L (20-30); Glucose 119 mg/dL (74-106); Magnesium 1.9 mg/dL (1.6-2.6); Sodium 140 mmol/L (136-145)
[2024-03-18 08:51] LABS: Bilirubin, Total 1.4 mg/dL (0.2-1.0); Phosphorus 3.1 mg/dL (2.4-5.1); Total Protein 6.9 g/dL (5.7-8.2)
[2024-03-18 08:55] LABS: Chloride 111 mmol/L (98-107)
[2024-03-18 09:01] LABS: Anion Gap 12 (5-15)
[2024-03-18] MEDS: SODIUM BICARB 8.4% 50Meq/50ml SYR Vial IV ONE (12:47)
[2024-03-19] VITALS (8 sets, daily range): BP systolic 113–149; BP diastolic 47–58; PULSE 67–79; RESP 19–20; TEMP 97.7–98.4; O2SAT 93–100
[2024-03-19 06:37] LABS: Alanine Aminotransferase 39 U/L (7-40); Albumin 3.6 g/dL (3.2-4.8); Alkaline Phosphatase 200 U/L (46-116); Anion Gap 11 (5-15); Aspartate Aminotransferase 33 U/L (13-40); BUN/Creatinine Ratio 36.8 (10.0-20.0); Bilirubin, Total 1.4 mg/dL (0.2-1.0); Calcium 9.3 mg/dL (8.7-10.4); Carbon Dioxide 21 mmol/L (20-30); Chloride 109 mmol/L (98-107); Glucose 129 mg/dL (74-106); Magnesium 1.8 mg/dL (1.6-2.6); Potassium 3.5 mmol/L (3.5-5.1); Sodium 141 mmol/L (136-145); Total Protein 6.5 g/dL (5.7-8.2)
[2024-03-19 06:39] LABS: Blood Urea Nitrogen 77 mg/dL (9-23)
[2024-03-19] MEDS: POTASSIUM CHL 20MEQ/100ML 100 ML IV ONE (09:44)
[2024-03-20] VITALS (7 sets, daily range): BP systolic 97–139; BP diastolic 37–88; PULSE 72–76; RESP 18–20; TEMP 97.5–98.2; O2SAT 93–100
[2024-03-20 07:20] LABS: Potassium 3.5 mmol/L (3.5-5.1)
[2024-03-20 07:21] LABS: Calcium 9.1 mg/dL (8.7-10.4)
[2024-03-20 07:26] LABS: BUN/Creatinine Ratio 35.4 (10.0-20.0)
[2024-03-20 07:27] LABS: Magnesium 1.6 mg/dL (1.6-2.6)
[2024-03-20 07:28] LABS: Albumin 3.5 g/dL (3.2-4.8); Phosphorus 2.6 mg/dL (2.4-5.1)
[2024-03-20] MEDS: SODIUM CHLORIDE 0.9% 1,000 ML IV ONE (14:46)
[2024-03-21] VITALS (7 sets, daily range): BP systolic 98–127; BP diastolic 40–51; PULSE 61–75; RESP 18–20; TEMP 97.5–98.1; O2SAT 94–97
[2024-03-21] MEDS: SODIUM BICARB 50mEq/50ml Vial 75 ML in SOD CHL 0.45% 1,000 ML IV SCH (09:30)
[2024-03-21] MEDS: LACTULOSE 20Gm/30ML SOLN PO PRN (10:50)
[2024-03-21] MEDS: MAGNESIUM SULFATE 1GM/100ML 100 ML IV SCH (13:04)
[2024-03-21 16:14] LABS: Basophils # (auto) 0.1 10 ^3/uL (0-0.2); Basophils % (auto) 0.9 % (0.0-2.0); Eosinophils # (auto) 0.2 10 ^3/uL (0-0.8); Eosinophils % (auto) 2.5 % (0.0-7.0); Hematocrit 37.8 % (41.0-53.0); Hemoglobin 12.3 g/dL (13.5-17.5); Lymphocytes # (auto) 1.4 10 ^3/uL (0.4-5.4); Lymphocytes % (auto) 15.1 % (10.0-50.0); Mean Corpuscular Hemoglobin 29.4 pg (28.0-32.0); Mean Corpuscular Hgb Conc. 32.4 g/dL (32.0-36.0); Mean Corpuscular Volume 90.5 fL (80.0-100.0); Neutrophils # (auto) 6.4 10 ^3/uL (1.6-8.6); Neutrophils % (auto) 70.5 % (37.0-80.0); Red Blood Cells 4.18 10^6/uL (4.5-5.90); White Blood Cell 9.1 10^3/uL (4.4-10.8)
[2024-03-21 16:44] LABS: Alanine Aminotransferase 37 U/L (7-40); Albumin 4.3 g/dL (3.2-4.8); Alkaline Phosphatase 276 U/L (46-116); Anion Gap 9 (5-15); Aspartate Aminotransferase 33 U/L (13-40); BUN/Creatinine Ratio 32.8 (10.0-20.0); Bilirubin, Total 1.6 mg/dL (0.2-1.0); Calcium 10.3 mg/dL (8.5-10.1); Carbon Dioxide 26 mmol/L (20-30); Chloride 111 mmol/L (98-107); Glucose 111 mg/dL (74-106); Potassium 3.4 mmol/L (3.5-5.1)
[2024-03-21 16:45] LABS: Blood Urea Nitrogen 67 mg/dL (9-23); Sodium 146 mmol/L (136-145); Total Protein 7.3 g/dL (5.7-8.2)
[2024-03-22 05:00] VITALS: BP 140/60; PULSE 60; RESP 18; TEMP 97.8; O2SAT 96
[2024-03-22 05:58] LABS: Basophils # (auto) 0.1 10 ^3/uL (0-0.2); Basophils % (auto) 1.1 % (0.0-2.0); Eosinophils # (auto) 0.3 10 ^3/uL (0-0.8); Eosinophils % (auto) 3.3 % (0.0-7.0); Hematocrit 37.5 % (41.0-53.0); Lymphocytes # (auto) 1.3 10 ^3/uL (0.4-5.4); Lymphocytes % (auto) 15.4 % (10.0-50.0); Mean Corpuscular Hemoglobin 29.6 pg (28.0-32.0); Mean Corpuscular Hgb Conc. 32.1 g/dL (32.0-36.0); Mean Corpuscular Volume 92.1 fL (80.0-100.0); Monocytes % (auto) 11.5 % (0.0-12.0); Neutrophils # (auto) 5.9 10 ^3/uL (1.6-8.6); Neutrophils % (auto) 68.7 % (37.0-80.0); Red Blood Cells 4.07 10^6/uL (4.5-5.90); Red Cell Distribution Width 17.4 % (11.8-14.3); White Blood Cell 8.6 10^3/uL (4.4-10.8)
[2024-03-22 05:59] LABS: Chloride 111 mmol/L (98-107); Potassium 3.5 mmol/L (3.5-5.1); Sodium 147 mmol/L (136-145)
[2024-03-22 06:00] LABS: Anion Gap 12 (5-15); Carbon Dioxide 24 mmol/L (20-30)
[2024-03-22 06:01] LABS: Calcium 9.9 mg/dL (8.7-10.4)
[2024-03-22 06:05] LABS: Glucose 100 mg/dL (74-106)
[2024-03-22 06:06] LABS: BUN/Creatinine Ratio 29.3 (10.0-20.0)
[2024-03-22 06:07] LABS: Blood Urea Nitrogen 53 mg/dL (9-23)
[2024-03-22 08:00] VITALS: BP 122/60; PULSE 62; PULSE 66; RESP 16; RESP 18; TEMP 98.2; O2SAT 98
[2024-03-22 09:00] VITALS: BP 118/44; PULSE 65; RESP 22; TEMP 97.7; O2SAT 98
[2024-03-22 13:00] VITALS: BP 115/38; PULSE 69; RESP 20; TEMP 98; O2SAT 95
== END 2024-03-22 14:35 | DRG 350 ==
LOC: ER 16:22 → EDBD 16:22 → ER 02-19 00:50 → TELE 02-19 00:50 → TELE-WESTW 02-19 16:41 → ICU WEST 02-21 14:47 → DOU IN ICU 03-07 09:00 → TELE-CENTR 03-11 11:32 → TELE-WESTW 03-16 04:54
PROVIDERS: ADMIT Nurse Practitioner Family; ATTEND Internal Medicine
PROC: 0YQ60ZZ Repair Left Inguinal Region, Open Approach (ICD-10-PCS; principal; 2024-02-20 13:56)
PROC: 0BH17EZ Insertion of Endotracheal Airway into Trachea, Via Natural or Artificial Opening (ICD-10-PCS; 2024-02-21)
PROC: 5A1955Z Respiratory Ventilation, Greater than 96 Consecutive Hours (ICD-10-PCS; 2024-02-21)
PROC: 05HA33Z Insertion of Infusion Device into Left Brachial Vein, Percutaneous Approach (ICD-10-PCS; 2024-02-21)
PROC: B54NZZA Ultrasonography of Left Upper Extremity Veins, Guidance (ICD-10-PCS; 2024-02-21)
PROC: 02HV33Z Insertion of Infusion Device into Superior Vena Cava, Percutaneous Approach (ICD-10-PCS; 2024-02-22)
PROC: B548ZZA Ultrasonography of Superior Vena Cava, Guidance (ICD-10-PCS; 2024-02-22)
PROC: 0W9B30Z Drainage of Left Pleural Cavity with Drainage Device, Percutaneous Approach (ICD-10-PCS; 2024-02-23)
PROC: 06HY33Z Insertion of Infusion Device into Lower Vein, Percutaneous Approach (ICD-10-PCS; 2024-02-23)
PROC: B54BZZA Ultrasonography of Right Lower Extremity Veins, Guidance (ICD-10-PCS; 2024-02-23)
PROC: 0BJ08ZZ Inspection of Tracheobronchial Tree, Via Natural or Artificial Opening Endoscopic (ICD-10-PCS; 2024-02-25)
PROC: 5A1D70Z Performance of Urinary Filtration, Intermittent, Less than 6 Hours Per Day (ICD-10-PCS; 2024-02-25)
PROC: 5A1D70Z Performance of Urinary Filtration, Intermittent, Less than 6 Hours Per Day (ICD-10-PCS; 2024-02-27)
PROC: 5A1D70Z Performance of Urinary Filtration, Intermittent, Less than 6 Hours Per Day (ICD-10-PCS; 2024-02-29)
PROC: 5A1D70Z Performance of Urinary Filtration, Intermittent, Less than 6 Hours Per Day (ICD-10-PCS; 2024-03-03)
PROC: 02HV33Z Insertion of Infusion Device into Superior Vena Cava, Percutaneous Approach (ICD-10-PCS; 2024-03-04)
PROC: B548ZZA Ultrasonography of Superior Vena Cava, Guidance (ICD-10-PCS; 2024-03-04)
PROC: 5A1D70Z Performance of Urinary Filtration, Intermittent, Less than 6 Hours Per Day (ICD-10-PCS; 2024-03-05)
PROC: 0JH63XZ Insertion of Tunneled Vascular Access Device into Chest Subcutaneous Tissue and Fascia, Percutaneous Approach (ICD-10-PCS; 2024-03-07)
PROC: 02H633Z Insertion of Infusion Device into Right Atrium, Percutaneous Approach (ICD-10-PCS; 2024-03-07)
PROC: B5181ZA Fluoroscopy of Superior Vena Cava using Low Osmolar Contrast, Guidance (ICD-10-PCS; 2024-03-07)
PROC: B548ZZA Ultrasonography of Superior Vena Cava, Guidance (ICD-10-PCS; 2024-03-07)
PROC: 5A1D70Z Performance of Urinary Filtration, Intermittent, Less than 6 Hours Per Day (ICD-10-PCS; 2024-03-07)
PROC: 5A1D70Z Performance of Urinary Filtration, Intermittent, Less than 6 Hours Per Day (ICD-10-PCS; 2024-03-09)
PROC: 05H933Z Insertion of Infusion Device into Right Brachial Vein, Percutaneous Approach (ICD-10-PCS; 2024-03-12)
PROC: B54MZZA Ultrasonography of Right Upper Extremity Veins, Guidance (ICD-10-PCS; 2024-03-12)
PROC: 5A1D70Z Performance of Urinary Filtration, Intermittent, Less than 6 Hours Per Day (ICD-10-PCS; 2024-03-12)
DX: K40.30 Unilateral inguinal hernia, with obstruction, without gangrene, not specified as recurrent (principal); G92.8 Other toxic encephalopathy; J18.9 Pneumonia, unspecified organism; J96.01 Acute respiratory failure with hypoxia; N18.6 End stage renal disease; J69.0 Pneumonitis due to inhalation of food and vomit; N17.9 Acute kidney failure, unspecified; I24.89 Other forms of acute ischemic heart disease; I50.32 Chronic diastolic (congestive) heart failure; J93.9 Pneumothorax, unspecified; E87.1 Hypo-osmolality and hyponatremia; I13.2 Hypertensive heart and chronic kidney disease with heart failure and with stage 5 chronic kidney disease, or end stage renal disease; T88.2XXA Shock due to anesthesia, initial encounter; N43.3 Hydrocele, unspecified; E66.9 Obesity, unspecified; E87.5 Hyperkalemia; N14.11 Contrast-induced nephropathy; S82.832A Other fracture of upper and lower end of left fibula, initial encounter for closed fracture; E87.6 Hypokalemia; K59.00 Constipation, unspecified; N28.89 Other specified disorders of kidney and ureter; T41.45XA Adverse effect of unspecified anesthetic, initial encounter; T50.8X5A Adverse effect of diagnostic agents, initial encounter; D63.1 Anemia in chronic kidney disease; E55.9 Vitamin D deficiency, unspecified; M10.9 Gout, unspecified; H91.93 Unspecified hearing loss, bilateral; I95.9 Hypotension, unspecified; N40.0 Benign prostatic hyperplasia without lower urinary tract symptoms; I08.0 Rheumatic disorders of both mitral and aortic valves; R13.12 Dysphagia, oropharyngeal phase; N14.4 Toxic nephropathy, not elsewhere classified; Z82.3 Family history of stroke; I25.2 Old myocardial infarction; Z68.27 Body mass index [BMI] 27.0-27.9, adult; Z82.49 Family history of ischemic heart disease and other diseases of the circulatory system; Z95.2 Presence of prosthetic heart valve; Z79.899 Other long term (current) drug therapy; Z95.0 Presence of cardiac pacemaker; X58.XXXA Exposure to other specified factors, initial encounter; Y93.89 Activity, other specified; Y92.89 Other specified places as the place of occurrence of the external cause; Y99.8 Other external cause status
CPT/HCPCS: 31622; 36415; 36600; 70450; 71045; 71275; 76775; 76870; 80048; 80053; 80069; 80074; 80202; 81001; 82140; 82306; 82570; 82728; 82805; 82962; 83540; 83550; 83605; 83735; 83880; 83970; 84100; 84132; 84156; 84300; 84478; 84484; 85007; 85025; 85027; 85610; 85730; 86850; 86900; 86901; 87040; 87070; 87077; 87081; 87086; 87088; 87186; 87205; 87340; 88302; 90935; 92610; 93005; 93306; 94002; 94003; 94640; 97110; 97116; 97163; 97530; 99152; C1894; C9113; G0378; J0171; J0330; J1642; J1815; J2250; J2543; J2704; J3480; J7060; P9047; Q9967